=== PATIENT | male | born 1960 | race Caucasian/White ===

== ENCOUNTER 2020-11-05 09:41 | Emergency (ER) | payer SELFPAY ==
[2020-11-05 09:47] VITALS: BP 171/85; PULSE 91; RESP 18; TEMP 36.5; O2SAT 100; BMI 37.3
--- NOTE | 2020-11-05 09:56 | US_ITS ---
WS: [id number] SCROTAL ULTRASOUND EXAMINATION CLINICAL INFORMATION: Right testilce pain COMPARISON: None. FINDINGS: TESTES Normal in size and echotexture, without focal lesion. Color Doppler: Normal color Doppler flow pattern. Right testes size: 3.2 cm x 2.5 cm x 2.6 cm. Left testes size: 4.0 cm x 2.2 cm x 2.7 cm. EPIDIDYMIDES Enlarged right epididymis with increased vascularity and edema consistent with epididymitis. Normal l eft epididymis. Right epididymis size: 3.1 cm x 3.4 cm x cm. Left epididymis size: 0.7 cm x cm x cm. HYDROCELE None. VARICOCELE None. OTHER FINDINGS None. US/US scrotum [id number] IMPRESSION: 1. Markedly enlarged right epididymis with edema. Findings most consistent wit h acute epididymitis. Recommend follow-up to resolution to exclude underlying l esion 2. Both testicles are normal in appearance. No evidence of orchitis. 3. Scrotal skin thickening and edema.
--- NOTE | 2020-11-05 09:57 | ED_ITS ---
HPI - Male Genitourinary General: Chief complaint: Urogenital-Male Stated complaint: swelling in genitals Time Seen by Provider: 11/05/20 09:46 History of Present Illness: HPI Narrative: Patient complains about right testicle pain and swelling. Patient said about 3 days ago where he could not urinate well and testicles hurt and now is able to urinate freely but his testicle he says is swollen very painful now denies fever chills dysuria. MD Complaint: testicle pain and testicle swelling Onset (ago): day(s) Duration: constant and progressively worsening Location: right testicle Severity: moderate Severity scale (1-10): 5 Quality: aching Relieving factors: none Exacerbating factors: palpation Associated symptoms: Reports no associated symptoms; Deny nausea or vomiting Review of Systems Const: Denies: fever(s), chills or body aches Eyes: Denies: change in vision or blurry vision ENMT: Denies: throat pain or nasal congestion Card: Denies: chest pain or dyspnea on exertion Resp: Denies: dyspnea, productive cough or non-productive cough GI: Denies: abdominal pain, nausea or vomiting : Reports: testicular pain; Denies: difficulty urinating Musc: Denies: extremity pain Skin/Breast: Denies: rash Neuro: Denies: headache(s) Psych: Denies: anxiety or depression Pravin/Lymph: Denies: easy bruising Physical Exam Const: COMMON NORMALS: no acute distress, average body habitus and patient oriented x3 HENMT: COMMON NORMALS: normocephalic HEAD & SCALP: normal to inspection and normocephalic FACE & SINUS: normal facial exam Eye: COMMON NORMALS: conjunctivae normal GENERAL EYE: appearance normal, both eyes and all related structures CONJUNCTIVA: Yes conjunctivae normal Neck/C-Spine: COMMON NORMALS: no JVD Chest: COMMONS NORMALS: normal inspection of the chest Resp: COMMON NORMALS: normal respiratory effort and clear to auscultation bilaterally AUSCULTATION: clear to auscultation bilaterally Cardio: COMMON NORMALS: no JVD, regular rate and regular rhythm RATE: regular rate RHYTHM: regular rhythm GI: COMMON NORMALS: Normal to inspection, nondistended, normoactive bowel sounds present : COMMON NORMALS: Yes no scrotal swelling TESTES: Yes Enlarged testicle(s) present (Right) and Yes testicular tenderness Testicular tenderness laterality: right Extremity: COMMON NORMALS: normal to inspection and full ROM Neuro: COMMON NORMALS: patient oriented x3 Course Vital Signs: Vital signs: Vital Signs Temperature 97.7 F 11/05/20 09:47 Pulse Rate 87 11/05/20 11:36 Respiratory Rate 18 11/05/20 11:36 Blood Pressure 167/82 11/05/20 11:36 Pulse Oximetry 100 11/05/20 11:36 MDM - Male MDM Narrative: Medical decision making narrative: Ultrasound showed acute epididymitis CBC was DC due to the wrong 2 been drawn patient is going to establish at [facility]. Reiterated patient needs follow-up with UA and check for resolution of symptoms in the next week. Lab Data: Labs: Lab Results 11/05/20 Range/Units 11:00 Urine Color Yellow (Yellow) Urine Appearance Cloudy (CLEAR) Urine pH 5 (5-7) Ur Specific Gravit y 1.015 (1.005-1.030) Urine Protein Neg (Negative) Urine Glucose (UA) 4+ H (Normal) Urine Ketones Negative (Negative) Urine Blood 2+ H (Negative) Urine Nitrate Positive H (Negative) Urine Bilirubin Neg (Negative) Urine Urobilinogen Norm (Negative) mg/dL Ur Leukocyte Tash ase 1+ H (Negative) Urine RBC 0-4 H (0-2) /hpf Urine WBC 25-40 H (0-5) /hpf Ur Squamous Epith Cells 0-4 H (0-5) /hpf Amorphous Sediment Not Reportable Urine Bacteria 2+ H (NONE) /hpf Discharge Plan Discharge Patient Disposition: Home Clinical Impression: Epididymitis Condition: Stable Prescriptions: New tramadol 50 mg tablet 50 mg PO TID PRN (Reason: pain) Qty: 7 RF: 0 levofloxacin 500 mg tablet 500 mg PO DAILY 7 Days Qty: 7 RF: 0 Discharge Orders: Discharge ED (Routine); Ordered 11/05/20 Ordered By: Fidel Sofia Discharge Diet: Usual diet Discharge Activity: Increase activity as tolerated Patient Instructions: Epididymitis (ED), Opioid Safety Activity Restrictions/Additional Instructions: Follow-up with medical provider as directed. Take medications as prescribed. Return to the ER or your medical provider if condition worsens. Please read and understand discharge instructions. If any questions ask please. Coding Level of Care Code ED Animal Nutrition Consultant for Chg Fwd Exam Comprehensive
[2020-11-05 11:18] LABS: Add Urine Culture? Yes; Add Urine Microscopic? YES; Bacteria Urine 2+ /hpf; Bilirubin Urine Neg (Negative); Blood Urine 2+ (Negative); Glucose Urine UA 4+ (Normal); Ketones Urine Negative (Negative); Leukocyte Esterase Urine 1+ (Negative); Nitrate Urine Positive (Negative); Protein Urine Neg (Negative); RBC Urine 0-4 /hpf (0-2); Specific Gravity, Urine 1.015 (1.005-1.030); Squamous Epithelial Cell Urine 0-4 /hpf (0-5); Urine Appearance Cloudy (CLEAR); Urine Color Yellow (Yellow); Urobilinogen Urine Norm (Negative); WBC Urine 25-40 /hpf (0-5); pH Urine 5 (5-7)
[2020-11-05] MEDS: TRAMadol 50 mg Tablet PO (11:24)
[2020-11-05] MEDS: levoFLOXacin 500 mg Tablet PO (11:24)
[2020-11-05 11:36] VITALS: BP 167/82; PULSE 87; RESP 18; O2SAT 100
== END 2020-11-05 11:38 | disposition home or self-care (01) ==
PROVIDERS: Emergency Provider Nurse Practitioner Family
DX: N45.1 Epididymitis (principal)
CPT/HCPCS: 76870; 81001; 87077; 87086; 87186; 99283

== ENCOUNTER → 2020-11-09 11:36 | Outpatient (BNVA) | payer SELFPAY | PROVIDERS: Visit Provider Nurse Practitioner Family | DX: R60.9 Edema, unspecified (principal); N45.1 Epididymitis | CPT/HCPCS: 81000 ==

== ENCOUNTER → 2020-11-16 14:26 | Outpatient (BNVA) | payer SELFPAY | PROVIDERS: PCP Family Medicine Adult Medicine; Visit Provider Nurse Practitioner Family | DX: R39.9 Unspecified symptoms and signs involving the genitourinary system (principal); N45.1 Epididymitis | CPT/HCPCS: 81003 ==

== ENCOUNTER → 2020-11-30 08:50 | Outpatient (BNVA) | payer SELFPAY | PROVIDERS: PCP Family Medicine Adult Medicine; Visit Provider Urology | DX: R39.9 Unspecified symptoms and signs involving the genitourinary system (principal); N45.1 Epididymitis | CPT/HCPCS: 81003 ==

== ENCOUNTER → 2020-12-01 07:51 | Outpatient (BNVA) | payer SELFPAY | PROVIDERS: PCP Family Medicine Adult Medicine; Visit Provider Family Medicine Adult Medicine | DX: N45.1 Epididymitis (principal); R39.9 Unspecified symptoms and signs involving the genitourinary system; N40.0 Benign prostatic hyperplasia without lower urinary tract symptoms; E11.40 Type 2 diabetes mellitus with diabetic neuropathy, unspecified; M19.022 Primary osteoarthritis, left elbow; R81 Glycosuria | CPT/HCPCS: 80053; 80061; 83036; 84153; 85025 ==

== ENCOUNTER 2021-05-24 09:38 | Inpatient (IN) | payer SELFPAY ==
[2021-05-24] VITALS (19 sets, daily range): BP systolic 95–147; BP diastolic 40–83; PULSE 68–97; RESP 12–24; TEMP 36.5–37.6; O2SAT 90–99; BMI 35.9
--- NOTE | 2021-05-24 10:07 | XR_ITS ---
WS: [id number] PORTABLE CHEST HISTORY: dyspnea/cough COMPARISON: 11/10/2012 Lungs are clear and well expanded. No pleural effusion or pneumothorax. Cardiac size: Normal. Mediastinum/Aorta: Mild atherosclerosis aorta. No osseous abnormality seen. XR/XR chest 1V portable [id number] IMPRESSION: Unremarkable portable chest.
--- NOTE | 2021-05-24 10:09 | CT_ITS ---
WS: [id number] CT ABDOMEN AND PELVIS WITH CONTRAST HISTORY: Right-sided pelvic pain for 3 days. TECHNIQUE: Imaging performed of the abdomen and pelvis with IV contrast. Single phase imaging of the abdomen. Coronal and sagittal reformats are submitted. All CT scans at [facility] use at [address] one of these dose optimization techniques: automated exposure control; mA and/or kV adjustment per patient size (includes targeted exams where dose is matched to clinical indication); or iterative re construction. IV CONTRAST: Omnipaque 300; 95 mL IV. Oral contrast: No DLP: 1999.08 mGy.cm COMPARISON: None available. Lower thorax: Lung bases are clear. Normal size heart. Small hiatal hernia. Liver/biliary system: Normal size with granulomata. No bile duct dilatation. Gallbladder: Normal. No gallstones or wall thickening. No pericholecystic fluid. Pancreas: Normal size pancreas and pancreatic duct. No adjacent inflammation. Spleen: Enlarged spleen measures 15.5 cm with granulomata. Adrenal glands: Normal. Right kidney: Mild perinephric stranding with no obstruction. Left kidney: Mild perinephric stranding with no obstruction. Aorta: Mild atherosclerosis with no aneurysm. Lymphadenopathy: There is a solid nodule measuring 4.1 x 2.2 cm in the upper LEFT abdomen adjacent bu t separate from the pancreatic tail and anterior to the kidney. Mass is along the perinephric fascia. Free fluid: None. GI tract: No GI tract obstruction. There are several diverticula in the descending colon. There is an abnormal inflammatory process extending to involve the anus. There is significant perianal inflammat ory change which is probably an extension from an abscess in the RIGHT perineum. There is an ill-defi winsome collection measuring 5.4 x 3.5 cm with a large amount of inflammatory change. This collection con tains fluid and air and has multiple small extensions. Abdominal wall: Unremarkable abdominal wall. No hernia. Pelvis: Urinary bladder well distended. Bones: Thoracolumbar scoliosis. CT/CT abdomen pelvis w con* [id number] IMPRESSION: 1. Moderate-sized perianal/perineal abscess just to the RIGHT of midline measu res 5.4 x 3.5 cm. There is extensive soft tissue cellulitis and inflammation rodriguez rrounding the mass which extends to involve the anus. 2. Additional soft tissue mass in the anterior LEFT pararenal space along the fascia measures 4.1 x 2.2 cm and may be abnormal lymph node. There are a few ad ditional retroperitoneal lymph nodes but no additional enlarged abnormal soft t issue masses. PET/CT imaging or surgical biopsy may be necessary. 3. Mild splenomegaly.
--- NOTE | 2021-05-24 10:12 | ED_ITS ---
HPI - Skin/Abscess/Foreign Bdy General: Chief complaint: Abdominal Pain Stated complaint: cant eat cant go to bathroom lump on bootom Time Seen by Provider: 05/24/21 09:42 History of Present Illness: HPI narrative: 60-year-old male with a history of diabetes presents emergency room with abdominal pain and what he describes a lump around the rectum. This all began last week he states when he eats he gets nauseous and vomits he has not been able to have a bowel movement for the last several days. He has had subjective fever sweats and chills as well. Initially he had a hard lump on the left side of the rectum and does not extend stented with painful swelling on the left buttock to the point he cannot sit. MD complaint: abscess/boil Onset (ago): day(s) Location: buttocks (Left) Severity: severe Quality: aching and constant Pain Consistency: constant Relieving factors: other (Left lateral recumbent position with no weight on the left buttock) Exacerbating factors: other (Pressure) Associated symptoms: Reports chills, fever(s), myalgias, nausea and vomiting; Deny arthralgias, cough, itching, rigidity or short of breath Treatments prior to arrival: none Review of Systems Const: Reports: fever(s) and chills ENMT: Denies: throat pain, ear or mastoid pain, nasal discharge or nasal congestion Card: Denies: chest pain, edema, dyspnea on exertion or orthopnea Resp: Denies: dyspnea, productive cough or non-productive cough GI: Reports: nausea and vomiting : Denies: flank pain, dysuria, urinary frequency or urinary urgency Skin/Breast: Denies: rash or pruritus PFSH ED PFSH: Medical History Acute epididymitis BPH (benign prostatic hyperplasia) Diabetes Diabetic neuropathy Dyslipidemia associated with type 2 diabetes mellitus Glucosuria Lower urinary tract symptoms (LUTS) 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 Surgical History History of ankle surgery Hx of knee surgery Status post colonoscopy Family History Mother , HEART DISEASE/DIABETES AT AGE 59 Diabetes UNKNOWN HISTORY OF FATHER CAD (coronary artery disease) Sister CAD (coronary artery disease) Social History Smoking and tobacco status: current every day smoker cigarettes Packs smoked per day: 0.5 Alcohol intake: never Marital status: Marital status details: since 1998 Number of children: 5 Number of grandchildren: 10 Current occupational status: employed Physical Exam Const: COMMON NORMALS: no acute distress GENERAL APPEARANCE: cooperative and comfortable ORIENTATION/CONSCIOUSNESS: Yes awake, Yes oriented to person, Yes oriented to place and Yes oriented to time HENMT: COMMON NORMALS: normocephalic, atraumatic and hearing grossly normal bilaterally HEAD & SCALP: normocephalic and atraumatic Neck/C-Spine: COMMON NORMALS: no JVD Resp: COMMON NORMALS: normal respiratory effort, No retractions, No use of accessory muscles and clear to auscultation bilaterally AUSCULTATION: clear to auscultation bilaterally Cardio: COMMON NORMALS: no JVD, regular rate, regular rhythm and No murmurs p resent (Cardio) RATE: regular rate RHYTHM: regular rhythm GI: COMMON NORMALS: Soft to palpation and No hepatosplenomegaly present AUSCULTATION: Yes normoactive bowel sounds PALPATION: Yes Soft to palpation, No Tenderness to palpation present (GI), No Guarding due to palpation present (GI) and Yes No hepatosplenomegaly present Extremity: COMMON NORMALS: normal to inspection, capillary refill normal, no clubbing, cyanosis or edema, no calf tenderness and no pedal edema Neuro: SENSORIUM/ORIENTATION: Yes oriented to person, Yes oriented to place and Yes oriented to time Skin: OTHER: Left buttock firm and indurated with moderate erythema. Perirectal inflammation and extreme tenderness at the 9 o'clock position. No active drainage no fistula noted. Course Vital Signs: Vital signs: Vital Signs Temperature 98.1 F 05/25/21 04:00 Pulse Rate 73 05/25/21 04:00 Respiratory Rate 17 05/25/21 04:00 Blood Pressure 107/66 05/25/21 04:00 Pulse Oximetry 96 05/25/21 04:00 MDM - Skin/Abscess/Foreign Bdy MDM Narrative: Medical decision making narrative: CT confirms was found on physical exam patient is a large pair rectal abscess labs and imaging reviewed discussed with Dr. Strange will admit to the hospitalist orders written patient. Dr. Strange is planning to take the patient to surgery. Reviewed findings with patient CT labs and imaging reviewed as found in the chart. Lab Data: Labs: Lab Results 05/24/21 05/24/21 05/24/21 09:57 09:57 09:57 WBC 11.0 10^3/uL H 10 ^3/uL (4.0-10.0) RBC 4.17 10^6/uL 10^6 /uL (4.1-5.3) Hgb 11.5 g/dL L g/dL (11.7-16.6) Hct 34.5 % L % (42.0-52.0) MCV 82.7 fl fl (80-94) MCH 27.6 pg L pg (28.0-34.0) MCHC 33.3 g/dL g/dL (30.0-36.0) RDW 14.6 % % (12.1-15.1) Plt Count 189 10^3/cmm 10^3 /cmm (130-400) MPV 9.8 fL fL (7.4-10.4) Neut % (Auto) 78.5 % % Lymph % (Auto) 9.3 % % Gordon % (Auto) 10.5 % % Eos % (Auto) 0.8 % % Baso % (Auto) 0.4 % % Neut # (Auto) 8.57 10^3/uL H 10 ^3/uL (1.8-7.7) Lymph # (Auto) 1.0 10^3/uL 10^3/ uL (0.8-4.8) Gordon # (Auto) 1.2 10^3/uL H 10^ 3/uL (0.2-0.9) Eos # (Auto) 0.1 10^3/uL 10^3/ uL (0.0-0.8) Baso # (Auto) 0.0 10^3/uL 10^3/ uL (0.0-0.1) Nucleated RBC % (a uto) 0 % % Total Counted 100 (0-100) Atypical Lymphs % 0.0 % % (0-5) Absolute Neutrophi ls 9.1 10^3/cmm H 10 ^3/cmm (1.4-6.5) Segmented Neutroph ils 54 % % Abs Segm Neuts (Ma n) 5.9 10/cmm 10/cmm (1.6-7.1) Band Neutrophils 29.0 % % Abs Band Neuts (Ma n) 3.2 10^3/cmm H 10 ^3/cmm (0.0-1.2) Absolute Lymphocyt es 0.9 10^3/cmm L 10 ^3/cmm (1.2-3.4) Lymphocytes (Manua l) 8 % % Monocytes (Manual) 8.0 % % Absolute Monocytes 0.9 10^3/cmm H 10 ^3/cmm (0.1-0.6) Eosinophils (Manua l) 1 % % Absolute Eosinophi ls 0.1 10^3/cmm 10^3 /cmm (0.0-0.7) Basophils (Manual) 0.0 % % Absolute Basophils 0.0 10^3/cmm 10^3 /cmm (0.0-0.2) Nucleated RBCs # 0.0 /100WBC /100W BC Platelet Estimate Normal (Normal) Sodium 131 mmol/L L mmol /L (136-145) Potassium 3.7 mmol/L mmol/L (3.5-5.1) Chloride 94 mmol/L L mmol/ L (98-107) Carbon Dioxide 26 mmol/L mmol/L (22-29) Anion Gap 14.7 (5-19) BUN 11 mg/dL mg/dL (8-23) Creatinine 0.8 mg/dL mg/dL (0.7-1.2) GFR Calculation 98.6 mL/min mL/mi n (90-130) Glucose 238 mg/dL H mg/dL (65-115) Estimat Average Gl ucose Hemoglobin A1c Calculated Osmolal ity 279 mOsm/kg L mOs m/kg (285-295) Lactic Acid 1.2 mmol/L mmol/L (0.5-2.2) Calcium 8.8 mg/dL mg/dL (8.5-10.5) Total Bilirubin 0.5 mg/dL mg/dL (0.15-1.2) AST 14 U/L U/L (0-40) ALT 18 U/L U/L (0-41) Alkaline Phosphata se 77 IU/L IU/L (40-130) Lactate Dehydrogen ase C-Reactive Protein Total Protein 7.0 g/dL g/dL (6.6-8.7) Albumin 3.3 g/dL L g/dL (3.5-5.2) Globulin 3.7 g/dL g/dL (1.3-4.6) Lipase 15 U/L U/L (13-60) Procalcitonin Urine Color Urine Appearance Urine pH Ur Specific Gravit y Urine Protein Urine Glucose (UA) Urine Ketones Urine Blood Urine Nitrate Urine Bilirubin Urine Urobilinogen Ur Leukocyte Tash ase Urine RBC Urine WBC Ur Squamous Epith Cells Amorphous Sediment Urine Bacteria Fine Granular Cast s Urine Mucus 05/24/21 05/24/21 05/24/21 09:57 09:57 10:15 WBC RBC Hgb Hct MCV MCH MCHC RDW Plt Count MPV Neut % (Auto) Lymph % (Auto) Gordon % (Auto) Eos % (Auto) Baso % (Auto) Neut # (Auto) Lymph # (Auto) Gordon # (Auto) Eos # (Auto) Baso # (Auto) Nucleated RBC % (a uto) Total Counted Atypical Lymphs % Absolute Neutrophi ls Segmented Neutroph ils Abs Segm Neuts (Ma n) Band Neutrophils Abs Band Neuts (Ma n) Absolute Lymphocyt es Lymphocytes (Manua l) Monocytes (Manual) Absolute Monocytes Eosinophils (Manua l) Absolute Eosinophi ls Basophils (Manual) Absolute Basophils Nucleated RBCs # Platelet Estimate Sodium Potassium Chloride Carbon Dioxide Anion Gap BUN Creatinine GFR Calculation Glucose Estimat Average Gl ucose 200 Hemoglobin A1c 8.6 % H % (4.0-6.0) Calculated Osmolal ity Lactic Acid Calcium Total Bilirubin AST ALT Alkaline Phosphata se Lactate Dehydrogen ase 122 U/L L U/L (135-225) C-Reactive Protein 253.8 mg/L H mg/L (0.0-4.9) Total Protein Albumin Globulin Lipase Procalcitonin 0.20 ng/mL ng/mL (0-0.5) Urine Color Dark yellow (Yellow) Urine Appearance Clear (CLEAR) Urine pH 5 (5-7) Ur Specific Gravit y 1.015 (1.005-1.030) Urine Protein 1+ H (Negative) Urine Glucose (UA) 2+ H (Normal) Urine Ketones 1+ H (Negative) Urine Blood Trace H (Negative) Urine Nitrate Negative (Negative) Urine Bilirubin 1+ H (Negative) Urine Urobilinogen 8 mg/dL H mg/dL (Negative) Ur Leukocyte Tash ase Negative (Negative) Urine RBC None /hpf /hpf (0-2) Urine WBC None /hpf /hpf (0-5) Ur Squamous Epith Cells 0-4 /hpf H /hpf (0-5) Amorphous Sediment Not Reportable Urine Bacteria 1+ /hpf H /hpf (NONE) Fine Granular Cast s 0-4 /lpf H /lpf Urine Mucus 1+ /hpf /hpf Discharge Plan Discharge Patient Disposition: Admitted As Inpatient Admit Provider: Sridhar Strange Clinical Impression: Saniya-rectal abscess, Diabetes mellitus Condition: Stable Coding Level of Care Code ED Casino Cage Supervisor for Chg Fwd Exam Detailed
[2021-05-24 10:27] LABS: Hematocrit 34.5 % (42.0-52.0); Hemoglobin 11.5 g/dL (11.7-16.6); Mean Corpuscular HGB Conc 33.3 g/dL (30.0-36.0); Mean Corpuscular Hemoglobin 27.6 pg (28.0-34.0); Mean Corpuscular Volume 82.7 fl (80-94); Mean Platelet Volume 9.8 fL (7.4-10.4); Platelet Count 189 10^3/cmm (130-400); Red Blood Count 4.17 10^6/uL (4.1-5.3); Red Cell Distribution Width 14.6 % (12.1-15.1)
[2021-05-24 10:33] LABS: Bilirubin Urine 1+ (Negative); Blood Urine Trace (Negative); Glucose Urine UA 2+ (Normal); Ketones Urine 1+ (Negative); Nitrate Urine Negative (Negative); Protein Urine 1+ (Negative); Specific Gravity, Urine 1.015 (1.005-1.030); Urine Appearance Clear (CLEAR); Urine Color Dark Yellow (Yellow); pH Urine 5 (5-7)
[2021-05-24 10:34] LABS: Add Urine Microscopic? YES; Leukocyte Esterase Urine Negative (Negative); Urobilinogen Urine 8 mg/dL (Negative)
[2021-05-24 10:37] LABS: Lactic Sepsis W/Reflex 1.2 mmol/L (0.5-2.2)
[2021-05-24 10:40] LABS: Add Urine Culture? No; Bacteria Urine 1+ /hpf; Fine Granular Casts Urine 0-4 /lpf; Mucus Urine 1+ /hpf; Squamous Epithelial Cell Urine 0-4 /hpf (0-5)
[2021-05-24 10:41] LABS: Alanine Aminotransferase 18 U/L (0-41); Albumin Level 3.3 g/dL (3.5-5.2); Alkaline Phosphatase 77 IU/L (40-130); Anion Gap 14.7 (5-19); Aspartate Amino Transferase 14 U/L (0-40); Blood Urea Nitrogen 11 mg/dL (8-23); Calcium 8.8 mg/dL (8.5-10.5); Carbon Dioxide 26 mmol/L (22-29); Chloride 94 mmol/L (98-107); Creatinine Clr Calc Pharmacy 123.8322; Globulin 3.7 g/dL (1.3-4.6); Glomerular Filtration Rate 98.6 mL/min (90-130); Glucose 238 mg/dL (65-115); Lipase 15 U/L (13-60); Osmolality Calculated 279 mOsm/kg (285-295); Potassium 3.7 mmol/L (3.5-5.1); Sodium 131 mmol/L (136-145); Total Bilirubin 0.5 mg/dL (0.15-1.2)
[2021-05-24 10:47] LABS: Slide Review Slide Review Perform
[2021-05-24 10:49] LABS: Absolute Eosinophils 0.1 10^3/cmm (0.0-0.7); Absolute Segmented Neutrophil 5.9 10/cmm (1.6-7.1); Band Neutrophils Absolute 3.2 10^3/cmm (0.0-1.2); Eosinophils 1 %; Lymphocytes 8 %; Monocytes Absolute 0.9 10^3/cmm (0.1-0.6); Segmented Neutrophils 54 %; Total Cells Counted 100 (0-100)
[2021-05-24 10:50] LABS: Absolute Neutrophil 9.1 10^3/cmm (1.4-6.5); Lymphocytes Absolute 0.9 10^3/cmm (1.2-3.4); Platelet Estimate Normal (Normal)
[2021-05-24] MEDS: iohexol 300 mg/mL 100 mL Btl IV (11:05)
[2021-05-24] MEDS: piperacillin-tazobactam 3.375 GM in sodium chloride 0.9% (plus) 50 ML IV ×2 (12:08→20:36)
--- NOTE | 2021-05-24 13:08 | P.HP_ITS ---
Providers/Chief Complaint Primary Care Provider: Ramone Samuel MD Chief Complaint: cant eat cant go to bathroom lump on bottom History of Present Illness Osman Acosta is a 60 year old male with a past medical history of insulin-dependent type 2 diabetes mellitus, diabetic peripheral neuropathy who presents to [facility] due to plane over his sacrum. Patient tells me that about a week ago, he started to develop pain, swelling, over his sacrum in his gluteal cleft, it is difficult for him to have a bowel movement due to pain, and over the week the pain involved, becoming more severe, and area of swelling and tenderness evolved. He tells me that he has a history of type 2 diabetes mellitus, is originally from [place], when he moved to [place], he was taken off insulin, and put on Metformin, however he does not have great insurance, so he cannot afford any of his medications, so stopped taking medication for some period of time. No history of CAD, no history of CHF, no history of strokes, no history of kidney disease, does report significant diabetic peripheral neuropathy, in the emergency room he was diagnosed with a moderate sized perianal /perineal abscess just to the right of the midline, with extensive soft tissue swelling. Emergency room physician contacted general surgery, patient is being kept n.p.o. for surgical debridement, hospitalist team was called for admission for medical management. Review of Systems Const: Denies: fever(s) or chills Eyes: Denies: change in vision or blurry vision ENMT: Denies: nasal congestion Card: Denies: chest pain, palpitations, irregular heart rhythm, edema or lightheadedness Resp: Denies: dyspnea, productive cough, non-productive cough or wheezing GI: Denies: abdominal pain, nausea, vomiting, hematemesis, diarrhea, constipation, hematochezia or melena : Denies: flank pain, difficulty urinating, dysuria or urinary frequency Musc: Reports: back pain; Denies: neck pain Skin/Breast: Reports: rash and erythema Neuro: Denies: dizziness or vertigo Endo: Denies: polyuria or polydipsia Medications/Allergies Home Medications Medication Instructions Recorded Confirmed Last Taken Type tamsulosin 0.4 mg capsule 0.4 mg PO DAILY #30 cap MDD SEE 11/16/20 05/24/21 05/24/21 Rx PHARMACY COMMENT naproxen 500 mg tablet 500 mg PO BID #60 tab 12/01/20 05/24/21 05/24/21 Rx levofloxacin 500 mg tablet 500 mg PO DAILY #14 tab MDD SEE 02/16/21 05/24/21 05/24/21 Rx PHARMACY COMMENT Allergies Allergy/AdvReac Type Severity Reaction Status Date / Time No Known Allergies Allergy Verified 05/24/21 09:47 PFSH Acute PFSH: Medical History Acute epididymitis BPH (benign prostatic hyperplasia) Diabetes Diabetic neuropathy Dyslipidemia associated with type 2 diabetes mellitus Glucosuria Lower urinary tract symptoms (LUTS) 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 Surgical History History of ankle surgery Hx of knee surgery Family History Mother , HEART DISEASE/DIABETES AT AGE 59 Diabetes UNKNOWN HISTORY OF FATHER CAD (coronary artery disease) Sister CAD (coronary artery disease) Social History Smoking and tobacco status: current every day smoker cigarettes Packs smoked per day: 0.5 Alcohol intake: never Marital status: Marital status details: since 1998 Number of children: 5 Number of grandchildren: 10 Current occupational status: employed Vitals/I&O/Wt Last Vital Signs Temp 98.3 F 05/24/21 09:47 Pulse 78 05/24/21 12:10 Resp 20 H 05/24/21 12:10 BP 118/41 05/24/21 12:10 Pulse Ox 96 05/24/21 12:10 Weight last 48 hrs Weight 113.398 kg Physical Exam Const: COMMON NORMALS: no acute distress and patient oriented x3 GENERAL APPEARANCE: cooperative and comfortable HENMT: COMMON NORMALS: normocephalic HEAD & SCALP: normocephalic Eye: COMMON NORMALS: Equal, round and reactive pupils present and EOMs intact bilaterally GENERAL EYE: appearance normal, both eyes and all related structures PUPIL: Yes Equal, round and reactive pupils present Neck/C-Spine: COMMON NORMALS: full ROM and no lymphadenopathy THYROID: Thyroid normal Lymph: LYMPHATIC: no lymphadenopathy noted Resp: COMMON NORMALS: normal respiratory effort, No retractions, No use of accessory muscles and clear to auscultation bilaterally AUSCULTATION: clear to auscultation bilaterally Cardio: COMMON NORMALS: regular rate, regular rhythm, S1 normal heart sound present, S2 normal heart sound present, No gallops present (Cardio), No clicks present (Cardio) and No murmurs present (Cardio) RATE: regular rate RHYTHM: regular rhythm HEART SOUNDS: S1 normal heart sound present and S2 normal heart sound present GI: COMMON NORMALS: Normal to inspection, nondistended, normoactive bowel sounds present, Soft to palpation, non-tender and No hepatosplenomegaly present PALPATION: Yes Soft to palpation and Yes No hepatosplenomegaly present Back/Pelvis: OTHER: Bilateral gluteus, erythema, swelling, warmth, extending down to the anus Neuro: COMMON NORMALS: patient oriented x3 and CN's II-XII intact bilaterally Psych: COMMON NORMALS: mental status grossly normal, Normal thought process present and cooperative Data : 05/24/21 09:57 05/24/21 09:57 Micro: Microbiology 05/24/21 10:20 Blood Culture - Preliminary Blood SPECIMEN COLLECTED 05/24/21 10:23 Blood Culture - Preliminary Blood SPECIMEN COLLECTED A&P Assessment and plan (1) Perianal abscess: Perianal abscess/perineal abscess with extensive surrounding cellulitis -ct ascan shows Moderate-sized perianal/perineal abscess just to the RIGHT of midline measures 5.4 x 3.5 cm. There is extensive soft tissue cellulitis and inflammation surrounding the mass which extends to involve the anus -Does have a history of type 2 diabetes -Denies a history of ulcerative colitis or Crohn's disease Plan -Currently n.p.o. -Currently on vancomycin, Zosyn -Follow inflammatory markers, ESR, CRP, pro-Luis -General surgery on consult, plan on debridement Type 2 diabetes mellitus, A1c, low-dose sliding scale Retroperitoneal lymphadenopathy:additional soft tissue mass in the anterior LEFT pararenal space along the fascia measures 4.1 x 2.2 cm and may be abnormal lymph node. There are a few additional retroperitoneal lymph nodes but no additional enlarged abnormal soft tissue masses. PET/CT imaging or surgical biopsy may be necessary. -We will have patient follow-up with hematology oncology as outpatient Full code Heparin for DVT prophylaxis Status: Acute (2) Diabetes: Status: Acute (3) Diabetic neuropathy: Status: Acute (4) BPH (benign prostatic hyperplasia): Status: Acute (5) Cellulitis: Status: Acute (6) Enlarged lymph node: Status: Acute Attestations Medical Necessity Statement*: Patient requires hospitalization, inpatient, greater than 2 midnights, for perineal, perianal abscess with surrounding cellulitis, requiring debridement, antibiotic therapy Coding Level of Care Code Acute Glass Carrier for [facility] Fwd Diagnoses Perianal abscess K61.0 Diabetes E11.9 Diabetic neuropathy E11.40 BPH (benign prostatic hyperplasia) N40.0 Cellulitis L03.90 Enlarged lymph node R59.9
[2021-05-24] MEDS: sodium chloride 0.9% 1,000 ML 30 ML IV (13:46)
--- NOTE | 2021-05-24 14:18 | PM.CONSULT ---
Providers/Reason For Consult Consulting Physician/Specialty*: General Surgery Dr. Strange Reason for Consult*: Perianal abscess Primary Care Provider: Ramone Samuel MD History of Present Illness History of Present Illness Osman Acosta is a 60 year old male who presented to the ER today with perianal pain which she states started about 6 days ago. Patient had a colonoscopy 2 years ago and was told that he had hemorrhoids and initially thought that he had a flareup of hemorrhoids for which he tried hemorrhoidal cream but there was no improvement. Over the course of the next few days the pain redness and swelling progressively increased to a point where it was difficult for him to even have a bowel movement. He denies any fevers chills, nausea, vomiting or diarrhea. Review of Systems General: Reports: 10 or more systems reviewed and unremarkable except in HPI and below Meds/Allergies Home Medications and Allergies Home Medications Medication Instructions Recorded Confirmed Last Taken Type tamsulosin 0.4 mg capsule 0.4 mg PO DAILY #30 cap MDD SEE 11/16/20 05/24/21 05/24/21 Rx PHARMACY COMMENT naproxen 500 mg tablet 500 mg PO BID #60 tab 12/01/20 05/24/21 05/24/21 Rx levofloxacin 500 mg tablet 500 mg PO DAILY #14 tab MDD SEE 02/16/21 05/24/21 05/24/21 Rx PHARMACY COMMENT Allergies Allergy/AdvReac Type Severity Reaction Status Date / Time No Known Allergies Allergy Verified 05/24/21 09:47 Current Medications Current Medications Generic Name Dose Route Start Last Admin Trade Name Freq PRN Reason Stop Dose Admin Sodium Chloride 1,000 mls @ 30 mls/hr 05/24/21 13:45 05/24/21 13:46 Sodium Chloride 0.9% IV 05/25/21 13:44 30 mls/hr .Q24H SEVEN Administration PFSH Acute PFSH: Medical History Acute epididymitis BPH (benign prostatic hyperplasia) Diabetes Diabetic neuropathy Dyslipidemia associated with type 2 diabetes mellitus Glucosuria Lower urinary tract symptoms (LUTS) 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 Surgical History History of ankle surgery Hx of knee surgery Status post colonoscopy Family History Mother , HEART DISEASE/DIABETES AT AGE 59 Diabetes UNKNOWN HISTORY OF FATHER CAD (coronary artery disease) Sister CAD (coronary artery disease) Social History Smoking and tobacco status: current every day smoker cigarettes Packs smoked per day: 0.5 Alcohol intake: never Marital status: Marital status details: since 1998 Number of children: 5 Number of grandchildren: 10 Current occupational status: employed Vitals/I&O/Wt Last Vital Signs Temp 99.0 F 05/24/21 13:39 Pulse 81 05/24/21 13:39 Resp 18 05/24/21 13:39 BP 95/47 05/24/21 13:39 Pulse Ox 97 05/24/21 13:39 Weight last 48 hrs Weight 250 lb Physical Exam Narrative: EXAM NARRATIVE: HEENT: Normocephalic Eye: Sclera /conjunctiva normal Respiratory and chest: Bilateral clear breath sounds on auscultation Cardiovascular: Normal S1 and S2 heart sounds Abdomen: Soft to palpation Neurological: Oriented to place person and time Skin: Intact, 6 x 6 cm area of erythema, tenderness, no drainage appreciated Data Micro: Micro: Microbiology 05/24/21 10:20 Blood Culture - Pr eliminary Blood SPECIMEN [facility] 05/24/21 10:23 Blood Culture - Pr eliminary Blood SPECIMEN [facility] A&P Assessment and plan (1) Perianal abscess: 60-year-old male who is a poorly controlled diabetic who presents with pain redness and swelling in the perianal region on the right side. WBC is 11 CT abdomen pelvis showed 5.4 x 3.5 cm collection to the right of the midline consistent with a perianal abscess with associated cellulitis Discussed the findings with the patient Plan for incision and drainage of perianal/perirectal abscess under MAC IV Zosyn given in the ER Procedure, risks, benefits and alternatives have been discussed with the patient who wishes to proceed with surgery. Status: Acute Consult Attestations Medical Necessity Statement: As per attending physician Coding Level of Care Code Acute Digital Cartographer for [facility]ay[facility] Diagnoses Perianal abscess K61.0
--- NOTE | 2021-05-24 14:21 | P.ANESASSM_ITS ---
Pre-Anesthetic Assessment Pre-Anesthetic Assessment: Height/Weight: Height 1.78 m Weight 113.398 kg Temp Pulse Resp BP Pulse Ox 99.0 F 81 18 95/47 97 05/24/21 13:39 05/24/21 13:39 05/24/21 13:39 05/24/21 13:39 05/24/21 13:39 Preop Diagnosis: perirectal abscess Proposed Procedure: Operation Date: 05/24/21 15:00 Proposed Procedures p Incision And Drainage(Not Applicable) - Sridhar Strange MD Was Beta David taken within 24 hours: N/A Was Clonidine taken within 24 hours: N/A Last intake: Intake Last Liquid Date 05/24/21 Last Liquid Time 08:00 Last Solid Date 05/21/21 Last Solid Time 12:00 Social: Social History: Tobacco and No alcohol Exam: Pre-Anes Outpt Exam: alert, oriented x 3 and regular rate & rhythm Airway: Submandibular: WNL Cervical ROM: WNL MP: 2 Dentition: Loose Additional comments: Poor, missing most Pulmonary: Pulmonary: COPD Metabolic: Metabolic: DM and Morbid obesity Neuropsych: Neuropsych: Neuropathy Anesthetic Plan: ASA status: 3 Anesthesia: General Risk of > 500 ml blood loss (7ml/kg in children): No Meds/Allergies Current Medications: Current Medications Generic Name Dose Route Start Last Admin Trade Name Freq PRN Reason Stop Dose Admin Sodium Chloride 1,000 mls @ 30 ml s/hr 05/24/21 13:45 05/24/21 13:46 Sodium Chloride 0.9% IV 05/25/21 13:44 30 mls/hr .Q24H SEVEN Administration PFSH Anesthesia PFSH: Medical History Acute epididymitis BPH (benign prostatic hyperplasia) Diabetes Diabetic neuropathy Dyslipidemia associated with type 2 diabetes mellitus Glucosuria Lower urinary tract symptoms (LUTS) 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 Surgical History History of ankle surgery Hx of knee surgery Family History Mother , HEART DISEASE/DIABETES AT AGE 59 Diabetes UNKNOWN HISTORY OF FATHER CAD (coronary artery disease) Sister CAD (coronary artery disease) Social History Smoking and tobacco status: current every day smoker cigarettes Packs smoked per day: 0.5 Alcohol intake: never Marital status: Marital status details: since 1998 Number of children: 5 Number of grandchildren: 10 Current occupational status: employed Data Anesthesia CBC & Chem 7: 05/24/21 09:57 05/24/21 09:57 Other Labs: Laboratory Results - last 48 hr 05/24/21 05/24/21 05/24/21 09:57 09:57 09:57 WBC 11.0 H RBC 4.17 Hgb 11.5 L Hct 34.5 L MCV 82.7 MCH 27.6 L MCHC 33.3 RDW 14.6 Plt Count 189 MPV 9.8 Lymph % (Auto) Not Reportable [place] % (Auto) Not Reportable Lymph # (Auto) Not Reportable [place] # (Auto) Not Reportable Total Counted 100 Atypical Lymphs % 0.0 Absolute Neutrophils 9.1 H Segmented Neutrophils 54 Abs Segm Neuts (Man) 5.9 Band Neutrophils 29.0 Abs Band Neuts (Man) 3.2 H Absolute Lymphocytes 0.9 L Lymphocytes (Manual) 8 Monocytes (Manual) 8.0 Absolute Monocytes 0.9 H Eosinophils (Manual) 1 Absolute Eosinophils 0.1 Basophils (Manual) 0.0 Absolute Basophils 0.0 Platelet Estimate Normal Sodium 131 L Potassium 3.7 Chloride 94 L Carbon Dioxide 26 Anion Gap 14.7 BUN 11 Creatinine 0.8 GFR Calculation 98.6 Glucose 238 H Calculated Osmolality 279 L Lactic Acid 1.2 Calcium 8.8 Total Bilirubin 0.5 AST 14 ALT 18 Alkaline Phosphatase 77 Total Protein 7.0 Albumin 3.3 L Globulin 3.7 Lipase 15 Urine Color Urine Appearance Urine pH Ur Specific [place] Urine Protein Urine Glucose (UA) Urine Ketones Urine Blood Urine Nitrate Urine Bilirubin Urine Urobilinogen Ur Leukocyte Esterase Urine RBC Urine WBC Ur Squamous Epith Cells Amorphous Sediment Urine Bacteria Fine Granular Casts Urine Mucus 05/24/21 10:15 WBC RBC Hgb Hct MCV MCH MCHC RDW Plt Count MPV Lymph % (Auto) [place] % (Auto) Lymph # (Auto) [place] # (Auto) Total Counted Atypical Lymphs % Absolute Neutrophils Segmented Neutrophils Abs Segm Neuts (Man) Band Neutrophils Abs Band Neuts (Man) Absolute Lymphocytes Lymphocytes (Manual) Monocytes (Manual) Absolute Monocytes Eosinophils (Manual) Absolute Eosinophils Basophils (Manual) Absolute Basophils Platelet Estimate Sodium Potassium Chloride Carbon Dioxide Anion Gap BUN Creatinine GFR Calculation Glucose Calculated Osmolality Lactic Acid Calcium Total Bilirubin AST ALT Alkaline Phosphatase Total Protein Albumin Globulin Lipase Urine Color Dark yellow Urine Appearance Clear Urine pH 5 Ur Specific [place] 1.015 Urine Protein 1+ H Urine Glucose (UA) 2+ H Urine Ketones 1+ H Urine Blood Trace H Urine Nitrate Negative Urine Bilirubin 1+ H Urine Urobilinogen 8 H Ur Leukocyte Esterase Negative Urine RBC None Urine WBC None Ur Squamous Epith Cells 0-4 H Amorphous Sediment Not Reportable Urine Bacteria 1+ H Fine Granular Casts 0-4 H Urine Mucus 1+ Micro: Microbiology 05/24/21 10:20 Blood Culture - Preliminary Blood SPECIMEN COLLECTED 05/24/21 10:23 Blood Culture - Preliminary Blood SPECIMEN COLLECTED Cardiac Studies: No Data to Display
--- NOTE | 2021-05-24 14:35 | DCPLANNER ---
seafood and service meat manager had message to schedule a follow up appointment for patient with dermatology. seafood and service meat manager called the office of Dr. Valle, spoke with Luda, gave clinic patients information. seafood and service meat manager was told that patients information would be printed and reviewed. Clinic will call patient with appointment information.
--- NOTE | 2021-05-24 15:22 | PM.OP ---
Operative Report Date of procedure: May 24, 2021 Pre-op Diagnosis: 5 x 4 cm perianal abscess Post-op Diagnosis: 6 x 5 cm perianal abscess Patient is at a high risk for fistula since there was drainage of pus near the dentate line though the opening itself could not be identified Procedure Done: Incision and drainage of perianal abscess Anal exam under anesthesia Specimens removed/disposition: None Surgeon: Sridhar Strange Anesthesia: MAC Condition: stable Disposition: PACU Procedure: The patient was taken to the operating room and placed in left lateral position under MAC. The IV antibiotic had been previously administered. The perianal area was prepped and draped in a sterile manner. There was drainage of small amount of pus near the dentate line. An anoscope was used and there was large amount of stool within the rectum and exam was limited. Using a 15 blade a cruciate incision was made near the anal verge with drainage of large amount of pus. The wound was irrigated, loculations were taken down and hemostasis ensured. The wound was packed with 1 inch ribbon gauze and covered with sterile dressings. The patient was taken to the recovery room in stable condition.
[2021-05-24] MEDS: lidocaine 1% INJ 20 mL INJECTION (15:25)
--- NOTE | 2021-05-24 15:40 | ANE.PACU2 ---
Inpatient post-anesthesia follow up: Airway intact: Yes Vital signs: Temperature 99.7 F Pulse Rate [Monito r] 97 Pulse Rate 83 Respiratory Rate 22 Blood Pressure [Ri ght Arm] 133/83 Blood Pressure 131/55 Pulse Oximetry 90 Oxygen Delivery Me thod Room Air Oxygen Flow Rate Fraction of Inspir ed Oxygen Hydration adequate: Yes Nausea and vomiting: No Pain level: 2 Mental status: Baseline
[2021-05-24 16:30] LABS: Basophils % 0.4 %; Eosinophils # 0.1 10^3/uL (0.0-0.8); Eosinophils % 0.8 %; Lymphocytes % 9.3 %; Monocytes # 1.2 10^3/uL (0.2-0.9); Monocytes % 10.5 %; Neutrophils # 8.57 10^3/uL (1.8-7.7); Neutrophils % 78.5 %; Nucleated Red Blood Cells % 0 %
[2021-05-24 16:54] LABS: Estmated Average Glucose 200; Hemoglobin A1C 8.6 % (4.0-6.0)
[2021-05-24 17:33] LABS: Glucose Point of Care 154 mg/dL (70-110)
[2021-05-24 18:02] LABS: C Reactive Protein 253.8 mg/L (0.0-4.9); Lactate Dehydrogenase 122 U/L (135-225)
[2021-05-24] MEDS: heparin 5,000 unit/mL INJ 1 mL 5000 UNIT SUBCUT (18:56)
[2021-05-24] MEDS: famotidine 20 mg Tablet PO (19:04)
[2021-05-24] MEDS: vancomycin 1,500 MG/300 ML PIGGYBACK 200 MG IV (19:05)
[2021-05-24 20:28] LABS: LAB Peripheral Smear Sent for Review
[2021-05-24] MEDS: D5-NS 0.45% + KCL 20 mEq 20 MEQ/1,000 ML BAG 100 MEQ IV (20:37)
[2021-05-24] MEDS: HYDROcodone-acetaminophen 5-325 mg Tablet 1 TAB PO (21:15)
[2021-05-24 21:24] LABS: Glucose Point of Care 195 mg/dL (70-110)
[2021-05-25 00:20] VITALS: BP 92/64; PULSE 79; RESP 18; TEMP 36.8; O2SAT 95
[2021-05-25 02:00] VITALS: RESP 24
[2021-05-25] MEDS: morphine 4 mg/mL SDV 1 mL 2 MG IVP (02:00)
[2021-05-25] MEDS: vancomycin 1,500 MG/300 ML PIGGYBACK 200 MG IV ×2 (03:22→10:15)
[2021-05-25 04:00] VITALS: BP 107/66; PULSE 73; RESP 17; TEMP 36.7; O2SAT 96
[2021-05-25] MEDS: heparin 5,000 unit/mL INJ 1 mL 5000 UNIT SUBCUT (05:11)
[2021-05-25] MEDS: piperacillin-tazobactam 3.375 GM in sodium chloride 0.9% (plus) 50 ML IV ×2 (05:11→14:33)
[2021-05-25] MEDS: D5-NS 0.45% + KCL 20 mEq 20 MEQ/1,000 ML BAG 100 MEQ IV (05:48)
[2021-05-25] MEDS: HYDROcodone-acetaminophen 5-325 mg Tablet 1 TAB PO ×3 (06:11→14:36)
--- NOTE | 2021-05-25 06:14 | PC.NURSE ---
SHIFT SUMMARY Has rested well tonight. Has had c/o pain in rectal area and received po Hydrocodone X2 and IV Morphine X1 when was not time for the Hydrocodone. Dressing D&I. IV infusing at 100ml/hr rate and receiving IV antibiotics as ordered. Taking po well and voiding well.
[2021-05-25 06:48] LABS: Glucose Point of Care 225 mg/dL (70-110)
[2021-05-25 07:53] VITALS: BP 122/63; PULSE 75; RESP 19; TEMP 37.2; O2SAT 95
[2021-05-25] MEDS: famotidine 20 mg Tablet PO (08:32)
[2021-05-25] MEDS: tamsulosin 0.4 mg Capsule PO (08:32)
--- NOTE | 2021-05-25 10:16 | PC.CHAP ---
Pastoral Care Encounter/Spiritual Assessment Type of Contact [] Declined blister packing machine tender visit [] Patient/Family/Request visit [] Outpatient visit [] Follow-up visit [] Physician referral [] Code/Alert [] Routine visit [] Staff referral [] Actively dying [] Patient sleeping [] Family support [] [] Out of room [] Palliative care [] [] Receiving care in room [] Pre-surgical visit [] Trauma [] Long length of stay [] ICU visit [] Other: Relational/Emotional Strength [] Patient feels connected with others/family/visitors/staff [] Distress [] Loneliness/isolation [] Abandonment Spirituality of Patient [] Person of Abigail [] Attends Buddhism of their Abigail [] Believes in Prayer [] Reads Bible or Quaker materials [] There are Spiritual issues to be addressed Urologist Md Interventions [] Prayer [] Active listening [] Non-anxious presence [] Spiritual/emotional support [] Crisis/trauma care [] Spiritual counseling [] Bereavement support [] Provided bereavement packet [] Provided Bible/devotional materials [] Provided toy/stuffed animal, coloring book to patient or family member [] Provided Communion [] Anointing/[place] [] Salvation [] Completed spiritual assessment [] Other: Impact on Illness or Injury [] Angry [] Fearful [] Anxious [] Often cries [] Exhaustion [] Unable to work [] Unable to attend oriental orthodox [] Unable to walk/stand [] Unable to read [] Unable to drive [] Unable to eat/drink [] Unable to sleep [] Unable to be with family [] Patient intubated [] Other: Summary Time spent with patient Pastoral Care Encounter/Spiritual Assessment Type of Contact [] Declined blister packing machine tender visit [] Patient/Family/Request visit [] Outpatient visit [] Follow-up visit [] Physician referral [] Code/Alert [] Routine visit [] Staff referral [] Actively dying [] Patient sleeping [] Family support [] [] Out of room [] Palliative care [] [x] Receiving care in room [] Pre-surgical visit [] Trauma [] Long length of stay [] ICU visit [] Other: Relational/Emotional Strength [] Patient feels connected with others/family/visitors/staff [] Distress [] Loneliness/isolation [] Abandonment Spirituality of Patient [] Person of Abigail [] Attends Buddhism of their Abigail [] Believes in Prayer [] Reads Bible or Quaker materials [] There are Spiritual issues to be addressed Urologist Md Interventions [] Prayer [] Active listening [] Non-anxious presence [] Spiritual/emotional support [] Crisis/trauma care [] Spiritual counseling [] Bereavement support [] Provided bereavement packet [] Provided Bible/devotional materials [] Provided toy/stuffed animal, coloring book to patient or family member [] Provided Communion [] Anointing/[place] [] Salvation [] Completed spiritual assessment [] Other: Impact on Illness or Injury [] Angry [] Fearful [] Anxious [] Often cries [] Exhaustion [] Unable to work [] Unable to attend oriental orthodox [] Unable to walk/stand [] Unable to read [] Unable to drive [] Unable to eat/drink [] Unable to sleep [] Unable to be with family [] Patient intubated [] Other: Summary Time spent with patient
[2021-05-25 10:39] LABS: Alanine Aminotransferase 17 U/L (0-41); Albumin Level 2.7 g/dL (3.5-5.2); Alkaline Phosphatase 71 IU/L (40-130); Aspartate Amino Transferase 14 U/L (0-40); Blood Urea Nitrogen 10 mg/dL (8-23); Calcium 8.6 mg/dL (8.5-10.5); Carbon Dioxide 23 mmol/L (22-29); Chloride 92 mmol/L (98-107); Globulin 4.3 g/dL (1.3-4.6); Glomerular Filtration Rate 86.1 mL/min (90-130); Glucose 215 mg/dL (65-115); Osmolality Calculated 270 mOsm/kg (285-295); Sodium 127 mmol/L (136-145); Total Bilirubin 0.6 mg/dL (0.15-1.2)
[2021-05-25 10:43] LABS: Anion Gap 15.9 (5-19); Potassium 3.9 mmol/L (3.5-5.1)
[2021-05-25 11:28] LABS: Basophils # 0.1 10^3/uL (0.0-0.1); Basophils % 0.6 %; Eosinophils # 0.1 10^3/uL (0.0-0.8); Eosinophils % 1.2 %; Hematocrit 36.4 % (42.0-52.0); Hemoglobin 12.1 g/dL (11.7-16.6); Lymphocytes # 1.2 10^3/uL (0.8-4.8); Lymphocytes % 11.6 %; Mean Corpuscular HGB Conc 33.2 g/dL (30.0-36.0); Mean Corpuscular Hemoglobin 27.6 pg (28.0-34.0); Mean Corpuscular Volume 82.9 fl (80-94); Mean Platelet Volume 11.2 fL (7.4-10.4); Monocytes # 0.7 10^3/uL (0.2-0.9); Monocytes % 6.7 %; Neutrophils # 7.81 10^3/uL (1.8-7.7); Neutrophils % 78.9 %; Nucleated Red Blood Cells % 0 %; Platelet Count 225 10^3/cmm (130-400); Red Blood Count 4.39 10^6/uL (4.1-5.3); White Blood Count 9.9 10^3/uL (4.0-10.0)
--- NOTE | 2021-05-25 11:32 | PC.OT ---
PER DISCUSSION WITH P.T.; PATIENT DEMONSTRATES NO DEFICITS WITH ADL PERFORMANCE, OT NOT REQUIRED.
[2021-05-25 12:00] VITALS: BP 118/72; PULSE 79; RESP 17; TEMP 36.8; O2SAT 96
[2021-05-25 12:00] LABS: Glucose Point of Care 207 mg/dL (70-110)
[2021-05-25 12:18] LABS: Slide Review Slide Review Perform
--- NOTE | 2021-05-25 12:52 | P.DS_ITS ---
Discharge Providers Date of Admission: 05/24/21 16:43 Date of Discharge: May 25, 2021 Attending Provider at Admission: Sridhar Strange MD Attending Provider at Discharge: Yash Nguyen MD Primary Care Provider: Ramone Samuel MD Diagnoses at Discharge Discharge Diagnosis (1) Perianal abscess: Status: Acute Reason for Visit Reason for Visit: cant eat cant go to bathroom lump on bottom Hospital Course Hospital Course This is a 60-year-old male with a past medical history of insulin-dependent type 2 diabetes mellitus, off medications, who presents to [facility] due to pain over his sacrum Patient was admitted to [facility] for a perianal abscess, received broad spectrum antibiotic therapy, status post incision and drainage, tolerated surgical procedure well, discharged on 7 remaining days of Augmentin and doxycycline. Unfortunately patient does not have insurance, and he cannot pay [id number] for home health care, does home health care for daily dressing changes is not a viable option. Thus his family members was taught on daily dressing changes, he is to follow-up with Dr. Strange, follow-up with wound care as outpatient For his type 2 diabetes mellitus, he was discharged on a NovoLog sliding scale, Metformin, gabapentin for peripheral neuropathy, with close follow-up with his primary care provider as outpatient Patient was also found to have retroperitoneal lymphadenopathy, soft tissue mass in the anterior left pararenal space along the fascia measuring 4.1 x 2.2 cm. Patient is to follow-up with Dr. Siddiqi as outpatient, consideration of further imaging versus biopsy. Received broad-spectrum antibiotic therapy, Physical Exam Const: COMMON NORMALS: no acute distress and patient oriented x3 Neck/C-Spine: COMMON NORMALS: no JVD Resp: COMMON NORMALS: normal respiratory effort, No retractions, No use of accessory muscles and clear to auscultation bilaterally AUSCULTATION: clear to auscultation bilaterally Cardio: COMMON NORMALS: no JVD, regular rate, regular rhythm, S1 normal heart sound present and S2 normal heart sound present RATE: regular rate RHYTHM: regular rhythm HEART SOUNDS: S1 normal heart sound present and S2 normal heart sound present GI: COMMON NORMALS: Normal to inspection, nondistended, normoactive bowel sounds present, Soft to palpation and non-tender PALPATION: Yes Soft to palpation Back/Pelvis: OTHER: Perianal abscess, site, with overlying bandage Extremity: COMMON NORMALS: no pedal edema Neuro: COMMON NORMALS: patient oriented x3 Psych: COMMON NORMALS: mental status grossly normal Discharge Data Data Completed and Pending: Completed Studies During Hospitalization Category Date Time Status CT abdomen pelvis w con* [id number] Stat Cat Scan 05/24/21 10:09 Completed XR chest 1V chemo ble [id number] Stat Exams 05/24/21 10:07 Completed Pending at discharge Category Date Time Status Blood Culture Sta t Lab 05/24/21 10:20 Results Erythrocyte Sedim entation Rate Stat Lab 05/24/21 09:57 Received Vancomycin Trough Timed Lab 05/25/21 18:00 Ordered Labs from last 24 hours 05/25/21 05/25/21 05/25/21 11:55 10:08 10:08 WBC 9.9 RBC 4.39 Hgb 12.1 Hct 36.4 L MCV 82.9 MCH 27.6 L MCHC 33.2 RDW 15.0 Plt Count 225 MPV 11.2 H Neut % (Auto) 78.9 Lymph % (Auto) 11.6 Charlton % (Auto) 6.7 Eos % (Auto) 1.2 Baso % (Auto) 0.6 Neut # (Auto) 7.81 H Lymph # (Auto) 1.2 Charlton # (Auto) 0.7 Eos # (Auto) 0.1 Baso # (Auto) 0.1 Nucleated RBC % (a uto) 0 Nucleated RBCs # 0.0 ESR Sodium 127 L Potassium 3.9 Chloride 92 L Carbon Dioxide 23 Anion Gap 15.9 BUN 10 Creatinine 0.9 GFR Calculation 86.1 L Glucose 215 H POC Glucose 207 H Estimat Average Gl ucose Hemoglobin A1c Calculated Osmolal ity 270 L Calcium 8.6 Total Bilirubin 0.6 AST 14 ALT 17 Alkaline Phosphata se 71 Lactate Dehydrogen ase C-Reactive Protein Total Protein 7.0 Albumin 2.7 L Globulin 4.3 Procalcitonin 05/25/21 05/24/21 05/24/21 06:42 21:19 17:30 WBC RBC Hgb Hct MCV MCH MCHC RDW Plt Count MPV Neut % (Auto) Lymph % (Auto) Charlton % (Auto) Eos % (Auto) Baso % (Auto) Neut # (Auto) Lymph # (Auto) Charlton # (Auto) Eos # (Auto) Baso # (Auto) Nucleated RBC % (a uto) Nucleated RBCs # ESR Sodium Potassium Chloride Carbon Dioxide Anion Gap BUN Creatinine GFR Calculation Glucose POC Glucose 225 H 195 H 154 H Estimat Average Gl ucose Hemoglobin A1c Calculated Osmolal ity Calcium Total Bilirubin AST ALT Alkaline Phosphata se Lactate Dehydrogen ase C-Reactive Protein Total Protein Albumin Globulin Procalcitonin 05/24/21 05/24/21 05/24/21 09:57 09:57 09:57 WBC RBC Hgb Hct MCV MCH MCHC RDW Plt Count MPV Neut % (Auto) Lymph % (Auto) Charlton % (Auto) Eos % (Auto) Baso % (Auto) Neut # (Auto) Lymph # (Auto) Charlton # (Auto) Eos # (Auto) Baso # (Auto) Nucleated RBC % (a uto) Nucleated RBCs # ESR Pending Sodium Potassium Chloride Carbon Dioxide Anion Gap BUN Creatinine GFR Calculation Glucose POC Glucose Estimat Average Gl ucose 200 Hemoglobin A1c 8.6 H Calculated Osmolal ity Calcium Total Bilirubin AST ALT Alkaline Phosphata se Lactate Dehydrogen ase 122 L C-Reactive Protein 253.8 H Total Protein Albumin Globulin Procalcitonin 0.20 05/24/21 09:57 WBC RBC Hgb Hct MCV MCH MCHC RDW Plt Count MPV Neut % (Auto) 78.5 Lymph % (Auto) 9.3 Charlton % (Auto) 10.5 Eos % (Auto) 0.8 Baso % (Auto) 0.4 Neut # (Auto) 8.57 H Lymph # (Auto) 1.0 Charlton # (Auto) 1.2 H Eos # (Auto) 0.1 Baso # (Auto) 0.0 Nucleated RBC % (a uto) 0 Nucleated RBCs # 0.0 ESR Sodium Potassium Chloride Carbon Dioxide Anion Gap BUN Creatinine GFR Calculation Glucose POC Glucose Estimat Average Gl ucose Hemoglobin A1c Calculated Osmolal ity Calcium Total Bilirubin AST ALT Alkaline Phosphata se Lactate Dehydrogen ase C-Reactive Protein Total Protein Albumin Globulin Procalcitonin Vitals: Last Vital Signs Temp 98.9 F 05/25/21 07:53 Pulse 75 05/25/21 07:53 Resp 19 H 05/25/21 07:53 BP 122/63 05/25/21 07:53 Pulse Ox 95 05/25/21 07:53 Discharge Plan Discharge Patient Disposition: Home Condition: Stable Prescriptions: New hydrocodone-acetaminophen 5-325 mg Tablet 1 tab PO Q6H PRN (Reason: Moderate Pain) 7 Days Qty: 42 RF: 0 metformin 500 mg tablet 500 mg PO BID 30 Days Qty: 60 RF: 0 Novolog Flexpen U-100 Insulin 100 unit/mL (3 mL) insulin pen See Rx Instructions .ROUTE .COMPLEX Qty: 15 RF: 0 doxycycline hyclate 100 mg tablet 100 mg PO BID 7 Days Qty: 14 RF: 0 Augmentin 875-125 mg tablet 1 tab PO BID 7 Days Qty: 14 RF: 0 (DME) glucometer testing kit See Rx Instructions .Route .MEDSUPPLY Qty: 1 RF: 0 gabapentin 300 mg capsule 300 mg PO DAILY 30 Days Qty: 30 RF: 0 Continued tamsulosin 0.4 mg capsule 0.4 mg PO DAILY MDD SEE PHARMACY COMMENT 30 Days Qty: 30 RF: 0 Discontinued naproxen [Naprosyn] 500 mg tablet 500 mg PO BID Qty: 60 RF: 2 levofloxacin 500 mg tablet 500 mg PO DAILY MDD SEE PHARMACY COMMENT Qty: 14 RF: 0 Discharge Orders: Discharge Order (Routine); Ordered 05/25/21 Ordered By: Yash Nguyen Referrals: Ramone Samuel MD [Primary Care Provider] - 4-7 days Sridhar Strange MD [Physician] - 2 weeks Debi Siddiqi MD [Staff Physician] - 1 month (retroperitoneal lymph node) [facility], [Staff Physician] - 1-3 days Discharge Diet: Diabetic Discharge Activity: Resume usual activity Patient Instructions: Diabetes and Diet, Foot Care for People with Diabetes (DC), Hypoglycemia in a Person with Diabetes (GEN), Meal Planning with the Plate Method (DC), Diabetic Peripheral Neuropathy (DC), Chronic Wound Care (GEN), What to Do if Your Blood Sugar is Low (DC), Type 2 Diabetes Management for Adults (DC), Opioid Safety Activity Restrictions/Additional Instructions: -For your type 2 diabetes mellitus, check blood sugars 3 times daily, record them in a blood sugar log, bring to primary care physician's office -If blood sugar greater than 500, call primary care -If blood sugar less than 60, drink orange juice or eat a hard candy and call primary care -Take insulin sliding scale, inject 3 times daily, subcu, before meals, based on sliding scale, do not inject insulin if you do not eat -Follow-up with Dr. Samuel next week Fingerstick Blood Glucose Insulin Units 141-180 mg/dl 2 unit/SQ 181-220 mg/dl 4 units/SQ 221-260 mg/dl 6 units/SQ 261-300 mg/dl 8 units/SQ 301-350 mg/dl 10 units/SQ 351-400 mg/dl 12 units/SQ greater than 400 mg/dl 14 units/SQ -For abscess, continue daily dressing changes, follow-up with Dr. Strange, follow-up with wound care, take antibiotics as prescribed -If you develop any fevers, chills go to emergency room -For your large abdominal lymph node, follow-up with Dr. Siddiqi in 1 month Discharge Attestations Time Spent in Discharge Care*: less than 30 min Quality Metrics Clinical Quality Measures During this hospital stay, did patient experience: None Coding Level of Care Code Acute Wojciechg FW ALEJANDRINA note Diagnoses Perianal abscess K61.0
--- NOTE | 2021-05-25 16:41 | PC.NURSE ---
Patient's son at bedside. Patient's son watched dressing change and was provided verbally demonstrated how to change the dressing for his dad. Patient tolerated well.
[2021-05-25 16:44] VITALS: BP 118/72; PULSE 79; RESP 17; TEMP 36.8; O2SAT 96
--- NOTE | 2021-05-25 16:45 | PC.NURSE ---
IV removed intact. Patient tolerated well. Patient is A&Ox3. Respirations even and non-labored on room air. Reviewed patient discharge with patient at this time. Patient and son verbalized understanding of how to complete a dressing change. Patient verbalized understanding of discharge instructions including how to take medications that were provided to him by the [facility] pharmacy before he was discharged today and his follow up appointments.
--- NOTE | 2021-05-26 12:17 | PC.SOCIAL ---
discharge follow up call made, spoke with patient. patient is feeling better. discussed all new medications as prescribed. patient is aware of follow up appointment dates and times and has transportation. patient is checking blood sugars tid and keeping a record to take to his pcp. discussed with patient if sugar is above 500 or below 60 to contact his pcp or go to the ED. if below 60, eat hard candy and drink orange juice. pt has understanding of insulin sliding scale. discussed wound care with patient, that he can shower but not soak. to irrigate wound with saline and pack with ribbon gauze daily, patient verbalizes understanding. patient denies any questions or concerns.
[2021-05-26 13:27] LABS: Erythrocyte Sedimentation Rate 38 mm/hr (0-10)
--- NOTE | 2021-05-28 15:07 | PC.RESP ---
SMOKING CESSATION INFORMATION SENT TO PATIENT.
--- NOTE | 2021-07-02 12:37 | DCPLANNER ---
Patient has a follow up appointment scheduled for , July 08, 2021 at 3:[address] Valle at dermatology. Clinic will call patient with appointment information.
== END 2021-05-25 16:45 | disposition home or self-care (01) | DRG 346 ==
LOC: ER 12:00 → OPS 16:49 → MEDSURG 18:34
PROVIDERS: Admitting Provider Surgery; Emergency Provider Family Medicine; PCP Family Medicine Adult Medicine; Visit Provider Family Medicine
PROC: 0D9P0ZZ Drainage of Rectum, Open Approach (ICD-10-PCS; principal; 2021-05-24 15:00)
DX: K61.1 Rectal abscess (principal); E11.42 Type 2 diabetes mellitus with diabetic polyneuropathy; N40.1 Benign prostatic hyperplasia with lower urinary tract symptoms; E78.5 Hyperlipidemia, unspecified; F17.210 Nicotine dependence, cigarettes, uncomplicated; R59.0 Localized enlarged lymph nodes; Z91.120 Patient's intentional underdosing of medication regimen due to financial hardship
CPT/HCPCS: 36415; 36416; 71045; 74177; 80053; 80500; 81001; 82962; 83036; 83605; 83615; 83690; 84145; 85007; 85025; 85651; 86140; 87040; 94664; 96365; 96372; 97161; 99285; G0378; J1170; J1644; J1815; J2270; J2543; J2704; J3010; J3370; J3490; J7030; Q9967

== ENCOUNTER 2021-05-31 09:23 | Outpatient (CLI) | payer SELFPAY | END 2021-05-31 09:24 | disposition home or self-care (01) | LOC: WOUND 09:24 | PROVIDERS: PCP Family Medicine Adult Medicine; Visit Provider Emergency Medicine | DX: T81.89XA Other complications of procedures, not elsewhere classified, initial encounter (principal); Y83.8 Other surgical procedures as the cause of abnormal reaction of the patient, or of later complication, without mention of misadventure at the time of the procedure; E11.9 Type 2 diabetes mellitus without complications; F17.210 Nicotine dependence, cigarettes, uncomplicated | CPT/HCPCS: 11042; G0463 ==

== ENCOUNTER → 2021-06-02 08:47 | Outpatient (BNVA) | payer SELFPAY | PROVIDERS: PCP Family Medicine Adult Medicine; Visit Provider Urology | DX: R39.9 Unspecified symptoms and signs involving the genitourinary system (principal); N45.1 Epididymitis | CPT/HCPCS: 81003 ==

== ENCOUNTER 2021-06-07 09:21 | Outpatient (CLI) | payer SELFPAY | END 2021-06-07 09:22 | disposition home or self-care (01) | LOC: WOUND 09:22 | PROVIDERS: PCP Family Medicine Adult Medicine; Visit Provider Emergency Medicine | DX: T81.89XA Other complications of procedures, not elsewhere classified, initial encounter (principal); Y83.8 Other surgical procedures as the cause of abnormal reaction of the patient, or of later complication, without mention of misadventure at the time of the procedure; F17.210 Nicotine dependence, cigarettes, uncomplicated | CPT/HCPCS: 11042 ==

== ENCOUNTER 2021-06-14 09:06 | Outpatient (CLI) | payer SELFPAY | END 2021-06-14 09:07 | disposition home or self-care (01) | LOC: WOUND 09:06 | PROVIDERS: PCP Family Medicine Adult Medicine; Visit Provider Nurse Practitioner Family | DX: T81.89XA Other complications of procedures, not elsewhere classified, initial encounter (principal); Y83.8 Other surgical procedures as the cause of abnormal reaction of the patient, or of later complication, without mention of misadventure at the time of the procedure; F17.210 Nicotine dependence, cigarettes, uncomplicated | CPT/HCPCS: 11042 ==

== ENCOUNTER 2021-06-21 09:16 | Outpatient (CLI) | payer SELFPAY | END 2021-06-21 09:17 | disposition home or self-care (01) | LOC: WOUND 09:16 | PROVIDERS: PCP Family Medicine Adult Medicine; Visit Provider Emergency Medicine | DX: T81.89XA Other complications of procedures, not elsewhere classified, initial encounter (principal); Y83.8 Other surgical procedures as the cause of abnormal reaction of the patient, or of later complication, without mention of misadventure at the time of the procedure; F17.210 Nicotine dependence, cigarettes, uncomplicated; E11.9 Type 2 diabetes mellitus without complications | CPT/HCPCS: 11042 ==

== ENCOUNTER 2021-06-28 09:14 | Outpatient (CLI) | payer SELFPAY | END 2021-06-28 09:15 | disposition home or self-care (01) | LOC: WOUND 09:14 | PROVIDERS: PCP Family Medicine Adult Medicine; Visit Provider Nurse Practitioner Family | DX: T81.89XA Other complications of procedures, not elsewhere classified, initial encounter (principal); Y83.8 Other surgical procedures as the cause of abnormal reaction of the patient, or of later complication, without mention of misadventure at the time of the procedure; F17.210 Nicotine dependence, cigarettes, uncomplicated | CPT/HCPCS: 11042 ==

== ENCOUNTER 2021-07-05 09:14 | Outpatient (CLI) | payer SELFPAY | END 2021-07-05 09:15 | disposition home or self-care (01) | LOC: WOUND 09:14 | PROVIDERS: PCP Family Medicine Adult Medicine; Visit Provider Emergency Medicine | DX: T81.89XA Other complications of procedures, not elsewhere classified, initial encounter (principal); Y83.8 Other surgical procedures as the cause of abnormal reaction of the patient, or of later complication, without mention of misadventure at the time of the procedure; F17.210 Nicotine dependence, cigarettes, uncomplicated; E11.9 Type 2 diabetes mellitus without complications | CPT/HCPCS: 11042 ==

== ENCOUNTER 2021-07-19 09:15 | Outpatient (CLI) | payer MEDICAID, SELFPAY | END 2021-07-19 09:16 | disposition home or self-care (01) | LOC: WOUND 09:15 | PROVIDERS: PCP Family Medicine Adult Medicine; Visit Provider Emergency Medicine | DX: T81.89XA Other complications of procedures, not elsewhere classified, initial encounter (principal); Y83.8 Other surgical procedures as the cause of abnormal reaction of the patient, or of later complication, without mention of misadventure at the time of the procedure; F17.210 Nicotine dependence, cigarettes, uncomplicated; E11.9 Type 2 diabetes mellitus without complications | CPT/HCPCS: 11042 ==

== ENCOUNTER 2021-08-02 09:15 | Outpatient (CLI) | payer MEDICAID, SELFPAY | END 2021-08-02 09:16 | disposition home or self-care (01) | LOC: WOUND 09:16 | PROVIDERS: PCP Family Medicine Adult Medicine; Visit Provider Emergency Medicine | DX: T81.89XA Other complications of procedures, not elsewhere classified, initial encounter (principal); Y83.8 Other surgical procedures as the cause of abnormal reaction of the patient, or of later complication, without mention of misadventure at the time of the procedure; F17.210 Nicotine dependence, cigarettes, uncomplicated; E11.9 Type 2 diabetes mellitus without complications | CPT/HCPCS: 11042 ==

== ENCOUNTER → 2022-04-11 10:37 | Outpatient (BNVA) | payer MEDICAID, SELFPAY | PROVIDERS: PCP Family Medicine Adult Medicine; Referring Provider Family Medicine; Visit Provider Specialist | DX: M70.52 Other bursitis of knee, left knee (principal); S89.92XA Unspecified injury of left lower leg, initial encounter; X58.XXXA Exposure to other specified factors, initial encounter | CPT/HCPCS: 73560; 73565 ==

== ENCOUNTER 2022-04-11 11:30 | Outpatient (CLI) | payer MEDICAID, SELFPAY | END 2022-04-11 11:31 | disposition home or self-care (01) | LOC: SPT 11:31 | PROVIDERS: PCP Family Medicine Adult Medicine; Visit Provider Specialist | DX: Z46.89 Encounter for fitting and adjustment of other specified devices (principal); S89.92XD Unspecified injury of left lower leg, subsequent encounter; X58.XXXD Exposure to other specified factors, subsequent encounter; M70.52 Other bursitis of knee, left knee | CPT/HCPCS: 97760; 99203; L1812 ==

== ENCOUNTER 2022-06-22 07:41 | Outpatient (CLI) | payer MEDICAID, SELFPAY ==
--- NOTE | 2022-06-22 08:00 | MR_ITS ---
WS: [id number] MRI LEFT KNEE HISTORY: Left Knee Injury COMPARISON: Radiographs 04/11/2022 Anterior cruciate ligament: Mild thinning of the tendon but it is intact. Posterior cruciate ligament: Intact. Medial collateral ligament: Intact. Posterior lateral corner structures: Intact. Medial menisci: Horizontal tear through the posterior horn extends to the inferior articular surface. There is a small additional tear in the periphery of the posterior horn extending towards the menisc al root. Anterior horn is intact with mild intrasubstance degeneration. Lateral meniscus: Intact. Normal signal, size and shape. Extensor mechanism: Distal quadriceps tendon and patellar tendons are intact. Fluid and soft tissue: Small suprapatellar joint effusion. No Bettencourt's cyst. Osseous and articular structures: Patellofemoral compartment: Normal. Medial compartment: Mild narrowing of the medial compartment. There is extensive marrow edema and ost eochondral injury along the entire weightbearing surface of the medial femoral condyle extending into the femoral condyle. No loose body or fragment identified. Lateral compartment: Mild narrowing of the lateral compartment. Cartilage is intact but thinned. MR/MR knee LT wo con* [id number] IMPRESSION: 1. Horizontal tear posterior horn medial meniscus. There is an additional more peripheral tear extending towards the meniscal root. 2. Extensive osteochondral injury involving the entire weightbearing surface o f the medial femoral condyle with additional marrow edema extending into the fe moral condyle. 3. Mild narrowing of the medial compartment. No loose body or fracture identif ied.
== END 2022-06-22 07:42 | disposition home or self-care (01) ==
LOC: RAD 07:45
PROVIDERS: PCP Family Medicine Adult Medicine; Visit Provider Specialist
DX: M70.52 Other bursitis of knee, left knee (principal); S89.92XA Unspecified injury of left lower leg, initial encounter; X58.XXXA Exposure to other specified factors, initial encounter; S83.242A Other tear of medial meniscus, current injury, left knee, initial encounter
CPT/HCPCS: 73721

== ENCOUNTER → 2022-07-22 08:47 | Outpatient (BNVA) | payer MEDICAID, SELFPAY | PROVIDERS: PCP Family Medicine Adult Medicine; Visit Provider Family Medicine Adult Medicine | DX: E11.69 Type 2 diabetes mellitus with other specified complication (principal); E66.9 Obesity, unspecified; E78.5 Hyperlipidemia, unspecified; N40.0 Benign prostatic hyperplasia without lower urinary tract symptoms | CPT/HCPCS: 80053; 83036; 84443; 85025; G0103 ==

== ENCOUNTER → 2023-02-01 09:11 | Outpatient (BNVA) | payer MEDICAID, SELFPAY | PROVIDERS: PCP Family Medicine Adult Medicine; Visit Provider Family Medicine Adult Medicine | DX: E11.69 Type 2 diabetes mellitus with other specified complication (principal); E66.9 Obesity, unspecified; E11.22 Type 2 diabetes mellitus with diabetic chronic kidney disease; N18.2 Chronic kidney disease, stage 2 (mild); N40.0 Benign prostatic hyperplasia without lower urinary tract symptoms; R39.9 Unspecified symptoms and signs involving the genitourinary system | CPT/HCPCS: 80053; 83036; G0103 ==

== ENCOUNTER → 2023-05-03 08:57 | Outpatient (BNVA) | payer MEDICAID, SELFPAY | PROVIDERS: PCP Family Medicine Adult Medicine; Visit Provider Family Medicine Adult Medicine | DX: E11.69 Type 2 diabetes mellitus with other specified complication (principal); E66.9 Obesity, unspecified; E11.22 Type 2 diabetes mellitus with diabetic chronic kidney disease; N18.2 Chronic kidney disease, stage 2 (mild); N40.0 Benign prostatic hyperplasia without lower urinary tract symptoms; R39.9 Unspecified symptoms and signs involving the genitourinary system; E78.5 Hyperlipidemia, unspecified | CPT/HCPCS: 80053; 80061; 83036; G0103 ==

== ENCOUNTER → 2023-08-01 09:04 | Outpatient (BNVA) | payer MEDICAID, SELFPAY | PROVIDERS: PCP Family Medicine Adult Medicine; Visit Provider Family Medicine Adult Medicine | DX: E11.69 Type 2 diabetes mellitus with other specified complication (principal); E66.9 Obesity, unspecified; E11.22 Type 2 diabetes mellitus with diabetic chronic kidney disease; N18.2 Chronic kidney disease, stage 2 (mild); E78.5 Hyperlipidemia, unspecified; M15.9 Polyosteoarthritis, unspecified; E11.42 Type 2 diabetes mellitus with diabetic polyneuropathy; R39.9 Unspecified symptoms and signs involving the genitourinary system; N40.1 Benign prostatic hyperplasia with lower urinary tract symptoms; N13.8 Other obstructive and reflux uropathy; J44.9 Chronic obstructive pulmonary disease, unspecified | CPT/HCPCS: 83036 ==

== ENCOUNTER 2023-11-13 15:34 | Outpatient (CLI) | payer MEDICAID, SELFPAY ==
--- NOTE | 2023-11-13 15:55 | XR_ITS ---
WS: [id number] Exam: XR foot RT min 3V* [id number] Date/Time of Exam: 11/13/2023 3:55 PM Reason For Exam: E11.621 - Type 2 diabetes mellitus with foot ulcer No acute fracture or bone destruction. No soft tissue foreign bodies are seen. Degenerative changes i n the midfoot joints. Calcaneal spurs. Vascular calcifications about the ankle. IMPRESSION: 1. No acute fracture or bone destruction identified. 2. Degenerative changes. Calcaneal spurs.
== END 2023-11-13 15:35 | disposition home or self-care (01) ==
PROVIDERS: PCP Family Medicine Adult Medicine; Visit Provider Nurse Practitioner Family
DX: E11.621 Type 2 diabetes mellitus with foot ulcer (principal); L97.509 Non-pressure chronic ulcer of other part of unspecified foot with unspecified severity; M19.071 Primary osteoarthritis, right ankle and foot; M77.31 Calcaneal spur, right foot
CPT/HCPCS: 73630

== ENCOUNTER → 2023-11-20 15:59 | Outpatient (BNVA) | payer MEDICAID, SELFPAY | PROVIDERS: PCP Family Medicine Adult Medicine; Visit Provider Nurse Practitioner Family | DX: E11.621 Type 2 diabetes mellitus with foot ulcer (principal); L97.519 Non-pressure chronic ulcer of other part of right foot with unspecified severity | CPT/HCPCS: 87070; 87176; 87205 ==

== ENCOUNTER 2023-12-15 11:39 | Outpatient (CLI) | payer MEDICAID, SELFPAY ==
--- NOTE | 2023-12-15 12:00 | USCV_ITS ---
Dave Osman Age: 63 Gender: M : 1960 Exam Date: 12/15/2023 12:14 Ordering Phys: Brandee Scott NP Technologist: DINESH Exam Location: [facility] [place]_ Indication: HISTORY: Patient has history of. Ulcers. PROCEDURES: Venous duplex imaging was performed in bilateral lower extremities. The following venous structures were evaluated: common femoral vein, profunda vein, proximal portion of the greater saphenous vein, superficial femoral vein, and the popliteal vein. Serial compression, augmentation maneuvers, and spectral Doppler flow evaluation were performed. An evaluation for venous insufficiency was also completed. FINDINGS: The veins were found to be easily compressible with spontaneous blood flow. Non pulsatile flow pattern. The common femoral vein on the right side was found to have a reflux time of 2.8-second The proximal segment of the greater saphenous vein on the left side has a reflux time of 101,000 ms. The venous segment was 0.3 cm in diameter and at a depth of 1.3 cm. No other significant reflexes were noted on either side CONCLUSIONS 1. No evidence of DVT in the above-mentioned identifiable veins. 2. Significant the venous reflux of greater than 1000 ms was noted in the right common femoral vein. 3. Significant venous reflux of greater than 500 ms was noted in the left proximal segment of the greater saphenous vein. The reflux time, venous dimensions and depth from the surface are as mentioned above Dr Josefina Barbour MD [facility] (Electronically Signed) Final Date: 16 December 2023 20:30 S
== END 2023-12-15 11:40 | disposition home or self-care (01) ==
LOC: RAD 11:39
PROVIDERS: PCP Family Medicine Adult Medicine; Visit Provider Nurse Practitioner Family
DX: E11.621 Type 2 diabetes mellitus with foot ulcer (principal); L97.519 Non-pressure chronic ulcer of other part of right foot with unspecified severity
CPT/HCPCS: 93970

== ENCOUNTER 2023-12-18 13:46 | Outpatient (CLI) | payer MEDICAID, SELFPAY ==
--- NOTE | 2023-12-18 14:00 | USCV_ITS ---
Osman Acosta Age: 63 Gender: M : 1960 Exam Date: 12/18/2023 14:02 Ordering Phys: Brandee Scott NP Technologist: DODIE Exam Location: [facility] [place] Indication: RT Foot Ulcers Risk Factors: Previous Vascular Surgery: RIGHT LEFT BP: 169.0 / 72.00 BP: 162.0/ 77.00 0 0 Waveform Velocity (cm/s) Velocity (cm/s) Waveform Triphasic 71.3 Iliac Prox 90.1 Triphasic Triphasic 73.6 Iliac Mid 93.0 Triphasic Triphasic 97.4 Iliac Distal 89.5 Triphasic Triphasic 95.0 PLATE GAUGER 82.0 Triphasic Triphasic 142.0 SFA Prox 88.0 Triphasic Triphasic 131.0 SFA Mid 43.0 Monophasic Triphasic SFA Dist Monophasic 87.0 51.0 Triphasic 102.0 POP 66.0 Monophasic Monophasic 48.0 ELASTIC ATTACHER ZIGZAG 39.0 Monophasic Monophasic 43.0 DPA 33.0 Monophasic 0.3 NIMISHA 0.4 FINDINGS Moderate to heavy diffuse irregular plaques in the right iliac and femoral artery. Monophasic and continuous waveforms in the posterior tibial and dorsalis pedis artery on the right side. Mild to moderate diffuse plaque in the left iliac and femoral artery. Moderately heavy plaque in the distal superficial femoral artery Monophasic and continuous waveforms in the left popliteal, posterior tibial and dorsalis pedis artery. Resting NIMISHA 0.3 on the right and 0.4 on the left CONCLUSIONS 1. Abnormal resting ABIs bilaterally suggesting severe peripheral arterial disease 2. Abnormal Doppler waveforms suggesting collateral circulation in the posterior tibial and dorsalis breath artery on the right side. 3. Abnormal Doppler waveforms in the left popliteal and infrapopliteal vessels suggesting distal occlusion/high-grade stenosis in the distal SFA with collateral filling of the popliteal and infrapopliteal vessels Consider CTA/angiogram to better evaluate the arteries No similar previous studies are available for comparison Dr Josefina Barbour MD [facility] (Electronically Signed) Final Date: 19 December 2023 07:49 S
== END 2023-12-18 13:47 | disposition home or self-care (01) ==
LOC: RAD 13:48
PROVIDERS: PCP Family Medicine Adult Medicine; Visit Provider Nurse Practitioner Family
DX: E11.621 Type 2 diabetes mellitus with foot ulcer (principal); L97.519 Non-pressure chronic ulcer of other part of right foot with unspecified severity
CPT/HCPCS: 93925

== ENCOUNTER 2023-12-25 15:13 | Outpatient (CLI) | payer MEDICAID, SELFPAY ==
--- NOTE | 2023-12-25 16:00 | CT_ITS ---
WS: [id number] CT ANGIOGRAPHY OF THE ABDOMINAL AORTA WITH RUNOFF TO THE ANKLES HISTORY: E11.621 - Type 2 diabetes mellitus with foot ulcer TECHNIQUE: Arterial injection is performed during imaging to evaluate the aorta and runoff vessels to the ankles. MIP and volume rendering imaging has also been performed. All images are reviewed. All C T scans at [facility] use at least one of these dose optimization techniques: automated exposu re control; mA and/or kV adjustment per patient size (includes targeted exams where dose is matched t o clinical indication); or iterative reconstruction. Contrast: Omnipaque 350; 100 mL IV. DLP: 1745.04 mGy.cm COMPARISON: Arterial Doppler 12/18/2023 Abdominal aorta: Nonaneurysmal. Calcified plaque and intimal thickening. No high-grade stenosis. Meme ac axis and SMA are patent. There is thrombus in the proximal SMA but no occlusion. EBENEZER is patent. RIGHT lower extremity arterial system: Common, internal and external iliac arteries are normal in enh ancing. There is increased atherosclerotic disease within the internal iliac artery. Common femoral a rtery with mild atherosclerosis. High-grade stenosis if not complete occlusion with attempted reconst itution of the deep profunda artery. SFA with calcified plaque. Increasing plaque distally towards Hu nter's canal. Occluded popliteal artery with attempted reconstitution. Very poor runoff to the ankle involving the posterior tibial and the peroneal arteries. Predominantly arterial supply by the anteri or tibial artery extending distally. LEFT lower extremity arterial system: Atherosclerotic plaque and intimal thickening in the common, in ternal and external iliac arteries. Femoral artery is intact. Deep profunda is occluded several centi meters beyond its origin. SFA with heavy calcification. 50% stenosis mid SFA. High-grade or near comp lete occlusion mid SFA. Occlusion persists over several centimeters with reconstitution. Small calibe r popliteal artery but it is patent. Heavy calcified plaque. Tibioperoneal trunk is intact. Three-ves zoraida runoff to the ankle is limited. Peroneal artery is very poorly visualized. Scattered plaque in th e posterior and anterior tibial arteries. Emphysema of the lung bases. Normal size heart. Small hiatal hernia. Hypervascular lesion in the live r measuring 12 mm is probably hemangioma. Gallbladder is negative. No adrenal mass. Normal pancreas. Normal spleen. Kidneys are both normally enhancing. No mass. Reidentified is the mass in the anterior LEFT pararenal space which was also described on 05/24/2021 without increase in size. No GI tract obs truction. Normal appendix. Mild diverticulosis. No adenopathy or ascites. CT/CT angio abd aorta runof [id number] IMPRESSION: 1. Moderate atherosclerosis abdominal aorta. No aneurysm. 2. Plaque with mild narrowing of the proximal SMA. 3. High-grade stenosis and probable occlusion of the RIGHT deep profunda arter y. 4. LEFT deep profunda is occluded. 5. RIGHT SFA: Increasing plaque through Rohit's canal with moderate stenosis. Occluded popliteal artery. 6. LEFT SFA: Multilevel areas of stenosis with a complete occlusion in the mid to distal SFA. 7. RIGHT below the knee: Very limited arterial runoff to the ankle. Predominat thiago supplied by the anterior tibial artery. There is attempted reconstitution o f the peroneal and posterior tibial arteries towards the ankle. Small caliber a rteries. 8. LEFT below the knee: Three-vessel runoff to the ankle is limited. Peroneal artery is poorly visualized. There is additional plaque in the anterior and pos terior tibial arteries. These arteries are small caliber with limited arterial supply to the ankle.
[2023-12-25 16:03] LABS: Blood Urea Nitrogen 10 mg/dL (8-23); Glomerular Filtration Rate 67.6 mL/min (90-130)
[2023-12-25] MEDS: iohexol 350 mg/mL 500 mL Btl (per mL) IV (16:18)
== END 2023-12-25 15:14 | disposition home or self-care (01) ==
LOC: RAD 15:13
PROVIDERS: PCP Family Medicine Adult Medicine; Visit Provider Nurse Practitioner Family
DX: E11.621 Type 2 diabetes mellitus with foot ulcer (principal); L97.509 Non-pressure chronic ulcer of other part of unspecified foot with unspecified severity; R52 Pain, unspecified; I70.0 Atherosclerosis of aorta; I70.8 Atherosclerosis of other arteries
CPT/HCPCS: 75635; 82565; 84520; Q9967

== ENCOUNTER → 2023-12-26 12:38 | Outpatient (BNVA) | payer MEDICAID, SELFPAY | PROVIDERS: PCP Family Medicine Adult Medicine; Referring Provider Nurse Practitioner Family; Visit Provider Internal Medicine | DX: R07.9 Chest pain, unspecified (principal) | CPT/HCPCS: 93005 ==

== ENCOUNTER 2024-01-08 05:52 | Outpatient (CLI) | payer MEDICAID, SELFPAY ==
[2024-01-08] VITALS (26 sets, daily range): BP systolic 122–160; BP diastolic 55–89; PULSE 58–85; RESP 12–25; TEMP 36.6; O2SAT 94–98; BMI 32.7
--- NOTE | 2024-01-08 06:00 | XACV_ITS ---
Ht: 579 cm Wt: 32 kg BSA: 1.94 m2 Any Known Allergies: No known allergies Gender: Male : 1960 Exam Type: Invasive Peripheral Vascular Procedure(s): Procedure Description: Peripheral Cath Diagnostic Procedure Procedure Description: Abdominal aortic angiography Procedure Description: Lower extremities' angiography Exam Priority: Routine Abdominal Diagnostic Findings Distal abdominal aorta is patent. Lower Extremity Diagnostic Findings INDICATION: Non healing ulcers (Right foot)/ Severe peripheral artery disease. Right lower extremity findings: Right common iliac artery is patent. Right external iliac artery is patent. Right common femoral artery is patent. Right profunda artery is occluded. Right SFA is patent. Right popliteal artery is occluded. Has good collaterals below the knee with reconstitution of anterior tibial artery. AT reaches the foot. Peroneal artery and posterior tibial arteries are occluded. Left lower extremity findings: Left common iliac artery is patent. Left external iliac artery is patent. Left internal iliac artery is patent. Left common femoral artery is patent. Left profunda artery is occluded. Left SFA is occluded in the mid segment. Distal SFA reconstitute via collaterals . Left popliteal artery is patent. Below the knee patient has three-vessel runoff with patent posterior tibial, anterior tibial and peroneal arteries. Conclusions Severe peripheral artery disease. Patient has occluded profunda artery bilaterally. Single vessel run off below the knee on right lower extremity. We will refer to vascular surgery for opinion regarding possible high risk intervention attempt vs medical therapy. Recommendations Continue wound care follow up. Outpatient cardiology follow up in 4 weeks. Hemodynamic Data Phase:Rest AO : 157.0 / 54.0 ( 89.0 ) @ 8:58:00 AM 131.0 / 65.0 ( 96.0 ) @ 9:05:00 AM 167.0 / 58.0 ( 99.0 ) @ 9:09:00 AM Access Site Site: Left Femoral artery Sheath Size: 6 Fr Hemost... Method: Mynx Hemost... Success: Successful Procedure Details Findings Pre-Procedure Time Out. Identified patient by full name and date of as verbalized by the patient/guarantor. Does the consent match the physician's order: Yes. Accurate & Complete Informed Consent: Yes. Inpatient/Outpatient History & Physical on Chart: Yes. If H&P is completed, is and addenduem needed: No; If yes, is the addendum complete: N/A. Visualize and Verify Site with Patient/Guarantor: N/A. Relevant Radiology Images available: Yes. Pre-op teaching completed and patient verbalized understanding. The risks, benefits, and alternatives of sedation and/or procedure were discussed by physician. The patient agrees to continue. Procedure started. PERRLA. Strong, equal hand alternative energy engineer bilaterally. Lungs clear x 5 lobes. IV Site on Arrival: 20 gauge in the left forearm. IV Fluids: 0.9% NaCl at KVO. 0 mL infused prior to vat house laborer. Pre Procedural Pulses: bilateral dorsalis pedis was Doppled. Pre Procedural Pulses: bilateral posterior tibial was Doppled. Oxygen started at 2liters/min via nasal canula. bilateral groins was prepped with chloroprep then draped in the usual sterile fashion. Baseline sample Acquired. HR: 52 BPM. Physician arrived. Physician scrubbed in. Immediate Pre-Procedure Time Out. Correct Patient: Yes; Correct Procedure: Yes; Correct Site: Yes; Correct Patient Position: Yes; Correct Supplies: Yes; Dried Flammable Prep: Yes; Blood Products Available: N/A;. Lidocaine 1% infiltrated to the left groin. Arterial access obtained with micropuncture set. A 5Fr UF catheter in over wire. Abdominal aortogram performed in AP @ 10 mL/sec for a total of 30 mL. Glidewire inserted through the catheter. DSA performed of the right lower leg. DSA performed of the right foot. Catheter removed over the standard wire. Sheath injected in Left common femoral artery and runoff performed. A Mynx was successful obtaining hemostatsis at the Left Femoral artery insertion site. Post Procedure: Pulses reassessed and unchanged. PERRLA. Strong, equal hand alternative energy engineer bilaterally. No VTE prophylaxis required. Medication's Wasted: Other = Fentanyl 75mcg Versed 1 mg. Medication's Wasted: Heparin = 1000 units. Total IV fluids: 40 mL. Complications: None. Post-op diagnosis: PAD. Estimated blood loss: 5mL-10mL. Responsiveness - Normal response to verbal stimuli; alert and oriented, PERRLA. Airway - Unaffected, no intervention required; spontaneous ventilation. Circulation: W/N/L, pulses unchanged. Nausea/Vomiting: No. Procedure completed. Patient transferred by bed to 1st floor. Vital chart was stopped. Procedure Medications Start: 7:46 AM Stop: 7:46 AM Medication: Versed Amount: 1 mg Route: I.V. Start: 7:49 AM Stop: 7:49 AM Medication: Fentanyl Amount: 25 mcg Route: I.V. I, the attending physician, have reviewed and verified all procedure medications. Yes, all medications given per verbal order History/Risk Factors Hypertension: No Dyslipidemia: Yes Peripheral Arterial Disease (PAD): No Obesity: Yes Renal Disease: No Tobacco Use: Current/Recent(w/in 1 year) Prior Interventions PCI: No CABG: No Valve Surgery: No Report Signatures Finalized by Williams Kaplan MD on 01/14/2024 02:11 PM
[2024-01-08 06:20] LABS: Basophils % 0.5 %; Eosinophils # 0.2 10^3/uL (0.0-0.8); Eosinophils % 2.8 %; Hematocrit 43.2 % (37-53); Lymphocytes # 1.3 10^3/uL (0.8-4.8); Lymphocytes % 20.3 %; Mean Corpuscular HGB Conc 33.8 g/dL (30-55); Mean Corpuscular Hemoglobin 29.6 pg (27-33); Mean Corpuscular Volume 87.6 fl (82-101); Mean Platelet Volume 9.8 fL (7.4-10.4); Monocytes # 0.4 10^3/uL (0.2-0.9); Monocytes % 6.4 %; Neutrophils # 4.44 10^3/uL (1.8-7.7); Neutrophils % 69.8 %; Nucleated Red Blood Cells % 0 %; Platelet Count 164 10^3/cmm (157-399); Red Blood Count 4.93 10^6/uL (3.85-5.65); Red Cell Distribution Width 14.6 % (12.1-15.1); White Blood Count 6.36 10^3/uL (3.29-11.43)
[2024-01-08] MEDS: diphenhydrAMINE 50 mg Capsule PO (06:20)
[2024-01-08] MEDS: aspirin 325 mg Tablet PO (06:20)
[2024-01-08 06:37] LABS: Anion Gap 15.7 (5-19); Blood Urea Nitrogen 10 mg/dL (8-23); Carbon Dioxide 25 mmol/L (22-29); Chloride 103 mmol/L (98-107); Glomerular Filtration Rate 75.5 mL/min (90-130); Glucose 168 mg/dL (65-115); Osmolality Calculated 293 mOsm/kg (285-295); Potassium 3.7 mmol/L (3.5-5.1); Sodium 140 mmol/L (136-145)
--- NOTE | 2024-01-08 07:47 | W.PM.OPSUD ---
Surgery/Procedure H&P Update DATE OF PROCEDURE: January 08, 2024 DATE H&P PERFORMED: 12/26/23 H&P UPDATE INFORMATION: I have reviewed H&P completed within last 30 days, I have examined patient prior to procedure and No changes to prior documentation PREOP DIAGNOSIS: Non healing wounds/ Critical limb threatening ischemia PRIMARY INDICATION FOR PROCEDURE: Non healing wounds/ Critical limb threatening ischemia PLANNED PROCEDURE: Operation Date: 01/08/24 07:00 Proposed Procedures p Peripheral Diagnostic(Not Applicable) - Williams Kaplan M.D Possible intervention PATIENT REASSESSED PRIOR TO SEDATION, WITH NO CHANGE NOTED: Yes PHYSICAL EXAM: alert, oriented x 3, clear to auscultation bilaterally and regular rate & rhythm AIRWAY EVAL/ANESTHESIA PLAN: normal airway, ASA III, Local Anesthesia, Risks, benefits & alternatives of sedation and/or procedure discussed and Patient agrees to continue as planned ADDITIONAL INFORMATION: Moderate sedation
== END 2024-01-08 14:13 | disposition home or self-care (01) ==
LOC: CCL 05:53 → CSU 09:28
PROVIDERS: PCP Family Medicine Adult Medicine; Visit Provider Internal Medicine
DX: I70.211 Atherosclerosis of native arteries of extremities with intermittent claudication, right leg (principal); E78.5 Hyperlipidemia, unspecified; E66.9 Obesity, unspecified; Z68.32 Body mass index [BMI] 32.0-32.9, adult; E11.40 Type 2 diabetes mellitus with diabetic neuropathy, unspecified; Z79.84 Long term (current) use of oral hypoglycemic drugs; J44.9 Chronic obstructive pulmonary disease, unspecified; N40.0 Benign prostatic hyperplasia without lower urinary tract symptoms; E11.22 Type 2 diabetes mellitus with diabetic chronic kidney disease; N18.2 Chronic kidney disease, stage 2 (mild); F17.210 Nicotine dependence, cigarettes, uncomplicated; L97.511 Non-pressure chronic ulcer of other part of right foot limited to breakdown of skin
CPT/HCPCS: 36415; 75625; 75716; 80048; 85025; 96374; 96375; 99152; 99153; C1760; C1769; C1887; C1894; G0269; J1644; J2250; J3010; J7030; Q0163; Q9967

== ENCOUNTER → 2024-01-24 14:08 | Outpatient (BNVA) | payer MEDICAID, SELFPAY | PROVIDERS: PCP Family Medicine Adult Medicine; Visit Provider Nurse Practitioner Family | DX: I73.9 Peripheral vascular disease, unspecified (principal); Z09 Encounter for follow-up examination after completed treatment for conditions other than malignant neoplasm | CPT/HCPCS: 36415; 80048 ==

== ENCOUNTER 2024-03-21 10:28 | Emergency (ER) | payer MEDICAID, SELFPAY ==
[2024-03-21 10:52] VITALS: BP 145/80; PULSE 99; RESP 24; TEMP 36.9; O2SAT 100; BMI 31.5
--- NOTE | 2024-03-21 11:10 | XR_ITS ---
WS: [id number] Right foot, 3 views, 03/21/2024 Clinical Data: pain Comparison: Right foot, 11/13/2023 Findings: No fractures or dislocations are seen. No bone destruction or erosion is noted. There is osteoarthrit is of the tarsal bones and also of the bases of the second through fifth metatarsals.. There is a plantar spur and an Achilles spur. XR/XR foot RT min 3V* [id number] Impression: Osteoarthritis of the tarsal bones of the right foot.
--- NOTE | 2024-03-21 11:10 | USR_ITS ---
PROCEDURE INFORMATION: Exam: US Duplex Bilateral Lower Extremity Arteries Exam date and time: 03/21/2024 11:23 AM Age: 63 years old Clinical indication: Pain; Foot; Right; Prior surgery; Surgery date: 3-7 days post-operative; Surgery type: Stents RT leg; Additional info: Leg pain TECHNIQUE: Imaging protocol: Real-time ultrasound scan of the arteries of the bilateral lower extremities with 2-D menard scale, color Doppler flow and spectral waveform analysis. Images documented and saved. COMPARISON: CT angio abd aorta runof [id number] 12/25/2023 4:04 PM FINDINGS: There are scattered plaque throughout the right lower extremity arterial system. Right common iliac artery: Triphasic flow with a peak systolic velocity of 108 cm/s Right PRODUCT TRANSFER PUMPER: Triphasic flow with a peak systolic velocity of 110 cm/s Right SFA proximal: Triphasic flow with a peak systolic velocity of 94 cm/s Right SFA mid: Triphasic flow with a peak systolic velocity of 82 cm/s Right SFA distal: Triphasic flow with a peak systolic velocity of 77 cm/s Right popliteal artery: Not obtained Right SHOTGUN SHELL REPRINTING UNIT OPERATOR: Minimal monophasic flow with a peak systolic velocity of 18 cm/s Right DPA: Monophasic flow with a peak systolic velocity of 29 cm/s Right brachial pressure is 140/80 right SHOTGUN SHELL REPRINTING UNIT OPERATOR pressure 0, right DPA pressure 30. The right ankle-brachial index is 0.21. There are scattered plaque throughout the left lower extremity arterial system Left common iliac artery: Triphasic flow with a peak systolic velocity of 71 cm/s Left PRODUCT TRANSFER PUMPER: Triphasic flow with a peak systolic velocity of 53 cm/s Left SFA proximal: Triphasic flow with a peak systolic velocity of 49 cm/s Left mid SFA: Triphasic flow with a peak systolic velocity of 60 cm/s Left SFA distal: Biphasic flow with a peak systolic velocity of 34 cm/s Left popliteal artery: Monophasic flow with a peak systolic velocity of 26 cm/s Left DPA: Monophasic flow with a peak systolic velocity of 18 cm/s Left DPA: Monophasic flow with a peak systolic velocity of 60 cm/s Left SHOTGUN SHELL REPRINTING UNIT OPERATOR: Monophasic flow with a peak systolic velocity of 60 cm/s Left brachial pressure is 140/80. Left SHOTGUN SHELL REPRINTING UNIT OPERATOR pressure 80 and left DPA pressure 90. The left ankle-brachial index is 0.64. US/CV arterial duplex [facility] [id number] IMPRESSION: Abnormal ankle-brachial indices bilaterally. Segmental waveform analysis suggest arterial occlusive disease at the popliteal/trifurcation vessels bilaterally. Please note that the right popliteal artery waveform and peak systolic velocity was not obtained.
--- NOTE | 2024-03-21 11:16 | W.ED.EXTPRO ---
HPI - Extremity Problem General: Chief complaint: Extremity Injury, Lower Stated complaint: Right leg and foot pain--stint 2 wks ago Time Seen by Provider: 03/21/24 10:34 Source: patient Mode of arrival: ambulatory Limitations: no limitations History of Present Illness: 63-year-old male with history of diabetes he had a history of a right diabetic foot ulcer wound on his heel he also has peripheral vascular disease he had a stent placed 2 weeks ago at [facility] and his right leg states exposed to his left leg as well. He states been having extreme pain in that right heel concern of infection. He denies any new injuries [facility] ED PFS: Medical History Foot pain, right Abrasion of right cornea History of nonmelanoma skin cancer Ulcer of right foot due to type 2 diabetes mellitus Ulcer of right foot with fat layer exposed COPD suggested by initial evaluation Obesity (BMI 30.0-34.9) Osteoarthritis involving multiple joints on both sides of body CKD stage 2 due to type 2 diabetes mellitus Diabetes mellitus type 2 in obese History of rectal abscess Dyslipidemia associated with type 2 diabetes mellitus BPH (benign prostatic hyperplasia) Acute epididymitis Diabetic neuropathy Lower urinary tract symptoms (LUTS) Surgical History H/O medial meniscus repair of left knee Initial injury fall November 2021. History of incision and drainage (~05/24/21) Perianal abscess Status post colonoscopy Hx of knee surgery History of ankle surgery Family History Mother , HEART DISEASE/DIABETES AT AGE 59 Diabetes UNKNOWN HISTORY OF FATHER CAD (coronary artery disease) Hyperlipidemia Hypertension Sister CAD (coronary artery disease), Onset Age: 31 Grandfather Stroke Maternal-- Denies family history of Clotting disorder Dementia Chronic kidney disease (CKD) Anesthesia complication Bleeding disorder Lung disease Cancer Social History Smoking and tobacco/nicotine status: current every day tobacco/nicotine user cigarettes Packs smoked per day: 0.5 Alcohol intake: never Substance/Drug Use: current Substance/Drug use frequency: few times a month Adopted: No Caregiver/support person: No Lives independently: Yes Household members: children Housing: House Marital status: Marital status details: since 1998 Number of children: 5 Number of grandchildren: 10 Highest education level completed: 10th Grade service: No Current occupational status: employed 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 [employer] Pets and animals: Yes (2 dogs) Do you think of yourself as: Straight/Heterosexual Current gender identity: Male Physical Exam Const: COMMON NORMALS: no acute distress, patient oriented x3 and healthy appearing HENMT: COMMON NORMALS: normocephalic and atraumatic HEAD & SCALP: normocephalic and atraumatic Neck/C-Spine: COMMON NORMALS: full ROM and supple Chest: COMMONS NORMALS: normal inspection of the chest Resp: COMMON NORMALS: normal respiratory effort, No retractions, No use of accessory muscles and clear to auscultation bilaterally AUSCULTATION: clear to auscultation bilaterally Cardio: COMMON NORMALS: regular rate, regular rhythm and No murmurs present (Cardio) RATE: regular rate RHYTHM: regular rhythm Extremity: COMMON NORMALS: full ROM NARRATIVE EXTREMITY EXAM: Diabetic ulcer noted to right heel with some erythema noted Neuro: COMMON NORMALS: patient oriented x3, moves all extremities and no focal motor deficits Psych: COMMON NORMALS: mental status grossly normal, Normal thought process present and cooperative THOUGHT PROCESS: Normal thought process present Skin: COMMON NORMALS: no rashes or lesions noted GENERAL SKIN EXAM: no rashes or lesions noted Course Vital Signs: Vital signs: Vital Signs Temperature 98.4 F 03/21/24 15:49 Pulse Rate 89 03/21/24 15:49 Respiratory Rate 16 03/21/24 15:49 Blood Pressure 117/76 03/21/24 15:49 Pulse Oximetry 98 03/21/24 15:49 Oxygen Delivery Me thod Room Air 03/21/24 14:00 Oxygen Flow Rate 2 03/21/24 13:00 MDM - Extremity (Nontraumatic) Medical Decision Making Patient presents here with chronic foot ulcer he has no signs of any severe cellulitis his lactate here to improved his other inflammatory markers were essentially normal. I did call vascular surgery at [facility]. Had his stent placed and reviewed his ultrasound findings with them he has no signs of acute ischemic event they recommended they would follow him up next week in their clinic he feels much improved here we will start him on antibiotics and pain meds he is return if worsening he understands agrees to plan Medical Records I reviewed the patient's medical records. Lab Data I reviewed the patient's lab results. 03/21/24 11:28 03/21/24 11:28 Radiology Impressions Duplex Scan Lower Extremity Artery 03/21/24 11:10 IMPRESSION: Abnormal ankle-brachial indices bilaterally. Segmental waveform analysis suggest arterial occlusive disease at the popliteal/trifurcation vessels bilaterally. Please note that the right popliteal artery waveform and peak systolic velocity was not obtained. Foot X-Ray 03/21/24 11:10 Impression: Osteoarthritis of the tarsal bones of the right foot. Laboratory Results WBC 11.72 10^3/uL (3.29-11.43) H 03/21/24 11:28 RBC 5.29 10^6/uL (3.85-5.65) 03/21/24 11:28 Hgb 15.40 g/dL (11.27-16.99) 03/21/24 11:28 Hct 46.3 % (37-53) 03/21/24 11:28 MCV 87.5 fl (82-101) 03/21/24 11:28 MCH 29.1 pg (27-33) 03/21/24 11:28 MCHC 33.3 g/dL (30-55) 03/21/24 11:28 RDW 14.6 % (12.1-15.1) 03/21/24 11:28 Plt Count 271 10^3/cmm (157-399) 03/21/24 11:28 MPV 9.3 fL (7.4-10.4) 03/21/24 11:28 Neut % (Auto) 73.0 % 03/21/24 11:28 Lymph % (Auto) 18.2 % 03/21/24 11:28 [place] % (Auto) 6.6 % 03/21/24 11:28 Eos % (Auto) 1.2 % 03/21/24 11:28 Baso % (Auto) 0.6 % 03/21/24 11:28 Neut # (Auto) 8.56 10^3/uL (1.8-7.7) H 03/21/24 11:28 Lymph # (Auto) 2.1 10^3/uL (0.8-4.8) 03/21/24 11:28 [place] # (Auto) 0.8 10^3/uL (0.2-0.9) 03/21/24 11:28 Eos # (Auto) 0.1 10^3/uL (0.0-0.8) 03/21/24 11:28 Baso # (Auto) 0.1 10^3/uL (0.0-0.1) 03/21/24 11:28 Nucleated RBC % (auto) 0 % 03/21/24 11:28 Nucleated RBCs # 0.0 /100WBC 03/21/24 11:28 ESR 28 mm/hr (0-10) H 03/21/24 11:28 Sodium 140 mmol/L (136-145) 03/21/24 11:28 Potassium 3.8 mmol/L (3.5-5.1) 03/21/24 11:28 Chloride 101 mmol/L (98-107) 03/21/24 11:28 Carbon Dioxide 18 mmol/L (22-29) L 03/21/24 11:28 Anion Gap 24.8 (5-19) H 03/21/24 11:28 BUN 19 mg/dL (8-23) 03/21/24 11:28 Creatinine 1.0 mg/dL (0.7-1.2) 03/21/24 11:28 GFR Calculation 75.5 mL/min (90-130) L 03/21/24 11:28 Glucose 144 mg/dL (65-115) H 03/21/24 11:28 POC Glucose 143 mg/dL (70-110) H 03/21/24 12:03 Calculated Osmolality 295 mOsm/kg (285-295) 03/21/24 11:28 Lactic Acid 4.0 mmol/L (0.5-2.2) H 03/21/24 11:28 Lactic Acid (Sepsis) 1.9 mmol/L (0.5-2.2) 03/21/24 14:43 Calcium 10.0 mg/dL (8.5-10.5) 03/21/24 11:28 Total Bilirubin 0.5 mg/dL (0.15-1.2) 03/21/24 11:28 AST 14 U/L (0-40) 03/21/24 11:28 ALT 27 U/L (0-41) 03/21/24 11:28 Alkaline Phosphatase 68 U/L (40-130) 03/21/24 11:28 C-Reactive Protein 9.8 mg/L (0.0-4.9) H 03/21/24 11:28 NT-Pro-B Natriuret Pep 110 pg/mL (0-125) 03/21/24 11:28 Total Protein 8.3 g/dL (6.6-8.7) 03/21/24 11:28 Albumin 4.3 g/dL (3.5-5.2) 03/21/24 11:28 Globulin 4.0 g/dL (1.3-4.6) 03/21/24 11:28 All radiology interpretation(s) finalized by discharge EKG Data EKG 1: I personally reviewed and interpreted this EKG as follows: EKG interpretation date: 03/21/24 EKG interpretation time: 12:24 Interpretation: nsr hr [address] or t wave abnormalitis qrs 101 [id number] Discharge Plan Discharge Patient Disposition: Home Clinical Impression: PAD (peripheral artery disease), Foot pain, right Non-healing ulcer of right foot Qualifiers: Non-pressure ulcer stage: with fat layer exposed Qualified Code(s): L97.512 - Non-pressure chronic ulcer of other part of right foot with fat layer exposed Condition: Stable Prescriptions: New Bactrim DS 800-160 mg tablet 1 tab PO BID 10 Days Qty: 20 0RF Percocet 7.5-325 mg tablet 1 tab PO BID PRN (Reason: pain) Qty: 14 0RF No Action (DME) Hinged Knee Brace See Rx Instructions .Route .MEDSUPPLY Qty: 1 0RF Rx Instructions: As directed neomycin-polymyxin B-dexameth [Maxitrol] 3.5mg/mL-10,000 unit/mL-0.1 % drops,suspension 2 drp ophthalmic (eye) Q2H 7 Days Qty: 5 0RF meloxicam 7.5 mg tablet 7.5 mg PO DAILY Qty: 30 3RF tobramycin 0.3 % drops 1 drp ophthalmic (eye) .EVERY HOUR moxifloxacin 0.5 % drops 1 drp ophthalmic (eye) QID gabapentin 100 mg capsule 100 mg PO BID aspirin 325 mg Tablet 325 mg PO DAILY atorvastatin 20 mg tablet 20 mg PO DAILY metformin 1,000 mg tablet 1,000 mg PO BID lisinopril 2.5 mg tablet 2.5 mg PO DAILY Jardiance 25 mg tablet 25 mg PO QAM Discharge Orders: Discharge ED (Routine); Ordered 03/21/24 Ordered By: Dali Ibarra Referrals: Ramone Samuel MD [Primary Care Provider] - Discharge Diet: Advance as tolerated Discharge Activity: Resume usual activity Patient Instructions: Opioid Safety Activity Restrictions/Additional Instructions: follow up with your vascular surgeon in 4-7 days return if worsening Coding Level of Care Code ED Pre Certification Specialist for Elle Montemayor
[2024-03-21 11:31] VITALS: BP 150/74; PULSE 89; RESP 20; O2SAT 98
[2024-03-21 11:36] LABS: Basophils # 0.1 10^3/uL (0.0-0.1); Basophils % 0.6 %; Eosinophils # 0.1 10^3/uL (0.0-0.8); Eosinophils % 1.2 %; Hematocrit 46.3 % (37-53); Lymphocytes # 2.1 10^3/uL (0.8-4.8); Lymphocytes % 18.2 %; Mean Corpuscular HGB Conc 33.3 g/dL (30-55); Mean Corpuscular Hemoglobin 29.1 pg (27-33); Mean Corpuscular Volume 87.5 fl (82-101); Mean Platelet Volume 9.3 fL (7.4-10.4); Monocytes # 0.8 10^3/uL (0.2-0.9); Monocytes % 6.6 %; Neutrophils # 8.56 10^3/uL (1.8-7.7); Nucleated Red Blood Cells % 0 %; Platelet Count 271 10^3/cmm (157-399); Red Blood Count 5.29 10^6/uL (3.85-5.65); Red Cell Distribution Width 14.6 % (12.1-15.1); White Blood Count 11.72 10^3/uL (3.29-11.43)
[2024-03-21 11:40] LABS: Erythrocyte Sedimentation Rate 28 mm/hr (0-10)
[2024-03-21] MEDS: HYDROmorphone 1 mg/mL INJ 1 mL IVP (11:45)
[2024-03-21] MEDS: ondansetron 2 mg/ML SDV 2 mL 4 MG IVP (11:45)
[2024-03-21 12:01] VITALS: BP 171/65; PULSE 75; RESP 16; O2SAT 93
[2024-03-21 12:09] LABS: Glucose Point of Care 143 mg/dL (70-110)
[2024-03-21 12:10] LABS: Alanine Aminotransferase 27 U/L (0-41); Albumin Level 4.3 g/dL (3.5-5.2); Alkaline Phosphatase 68 U/L (40-130); Anion Gap 24.8 (5-19); Aspartate Amino Transferase 14 U/L (0-40); Blood Urea Nitrogen 19 mg/dL (8-23); C Reactive Protein 9.8 mg/L (0.0-4.9); Carbon Dioxide 18 mmol/L (22-29); Chloride 101 mmol/L (98-107); Creatinine Clr Calc Pharmacy 89.5296; Glomerular Filtration Rate 75.5 mL/min (90-130); Glucose 144 mg/dL (65-115); NT Pro B Type Natriuretic Pept 110 pg/mL (0-125); Osmolality Calculated 295 mOsm/kg (285-295); Potassium 3.8 mmol/L (3.5-5.1); Sodium 140 mmol/L (136-145); Total Bilirubin 0.5 mg/dL (0.15-1.2); Total Protein 8.3 g/dL (6.6-8.7)
--- NOTE | 2024-03-21 12:13 | ECG_ITS ---
[facility] Test Date: 2024-03-21 Pat Name: Osman Acosta Department: Room: Gender: Male Vice President Process: : 1960 Requested By: Dali Ibarra Order Number: [id number] Chelsi MD: Williams Kaplan M.D. Measurements Intervals [place] Rate: 75 P: 49 TX: 161 QRS: -7 QRSD: 101 T: 58 QT: 407 QTc: 456 Interpretive Statements SINUS RHYTHM Compared to ECG 12/26/2023 12:55:57 Sinus arrhythmia no longer present Indeterminate axis no longer present Electronically Signed On 03-21-2024 15:34:23 CDT by Williams Kaplan M.D. [id number]
[2024-03-21] MEDS: sodium chloride 0.9% 1,000 ML 999 ML IV ×2 (12:46→14:02)
[2024-03-21] MEDS: vancomycin 1,000 MG in sodium chloride 0.9% 250 ML 250 MG IV (12:46)
[2024-03-21 13:00] VITALS: BP 171/65; PULSE 81; RESP 16; O2SAT 98
[2024-03-21 13:19] LABS: Reflex Lactate Order REFLEX LACTIC ORDERD
[2024-03-21 14:00] VITALS: BP 171/105; PULSE 92; RESP 16; O2SAT 97
[2024-03-21 15:05] LABS: Lactic Acid level (Lactate) 1.9 mmol/L (0.5-2.2)
[2024-03-21] MEDS: HYDROcodone-acetaminophen 7.5-325 mg Tablet 1 TAB PO (15:36)
[2024-03-21 15:49] VITALS: BP 117/76; PULSE 89; RESP 16; TEMP 36.9; O2SAT 98
== END 2024-03-21 15:41 | disposition home or self-care (01) ==
PROVIDERS: Emergency Provider Emergency Medicine; PCP Family Medicine Adult Medicine
DX: E11.621 Type 2 diabetes mellitus with foot ulcer (principal); L97.512 Non-pressure chronic ulcer of other part of right foot with fat layer exposed; E11.22 Type 2 diabetes mellitus with diabetic chronic kidney disease; N18.2 Chronic kidney disease, stage 2 (mild); E11.40 Type 2 diabetes mellitus with diabetic neuropathy, unspecified; F17.210 Nicotine dependence, cigarettes, uncomplicated; Z79.84 Long term (current) use of oral hypoglycemic drugs
CPT/HCPCS: 36415; 36416; 73630; 80053; 82962; 83605; 83880; 85025; 85651; 86140; 93005; 93925; 96365; 96375; 99285; J1170; J2405; J3370; J7030; J7050